=== PATIENT | male | born 1925 | race Caucasian/White ===

== ENCOUNTER 2016-03-16 11:17 | Inpatient (IN) | payer MEDICARE, BC, OTHER ==
[2016-03-16] MEDS ORDERED: LIDOCAINE 1% INJ-PF (10 MG/ML) 30 ML SDV INJ ONE (11:37)
--- NOTE | 2016-03-16 11:42 | ER Document Report ---
ED General - General Chief Complaint: Near Syncope Stated Complaint: FALL;FACIAL INJURY Time seen by provider: 11:40 Mode of Arrival: Medic Information source: Patient Notes: 89-year-old male states that he was walking in the bathroom and thinks he passed out. He says he woke up on the floor was too weak to stand and called 911. He does not recall how long he was on the floor before he called 911 or how long he was unconscious. EMS reports there was blood all over the bathroom where he fell this also material of the thought might of been coffee ground material. The patient reports he was feeling well yesterday evening and has not had any recent illness. He says at the moment he feels sore everywhere but has no specific complaints of pain elsewhere and denies shortness of breath, nausea, vomiting, fever, chills, cough, pain numbness or focal weakness to any extremity. Primary care physician Dr. Trotter Physical Exam: General: Alert, appears well. HEENT: Normocephalic. Dried blood covering most of patient's face. When this is cleaned off the patient has a superficial abrasion to the anterior portion of the nose that does not require suture repair. He has dried blood in both nares with no active bleeding. Pupils equally round reactive to millimeters sclerae anicteric does not well-seen title injection. tympanic members are canals clear. no otorhinorrhea. oropharynx is edentulous moist mucous membranes no lesions a small amount of old blood present in mouth. no bony tenderness palpated the face Neck: Supple. Non-tender. Good range of motion without discomfort no JVD no bony deformities trachea midline Respiratory: No respiratory distress. Clear and equal breath sounds bilaterally. Not tender to palpation well-healed sternal incision noted Cardiovascular: Regular rate and rhythm. GEMMA not displaced Abdominal: Normal Inspection. Soft, non-tender. No distension. Normal Bowel Sounds. No guarding rebound rigidity Back: Non-tender. No deformity or step off. Rectal normal tone and brown stool no blood Extremities: Moves all four extremities. Full range of motion of all joints actively without increase in discomfort. Patient has a 2 cm laceration over the olecranon of the right elbow. No active bleeding present. Patient is multiple bruising of various ages to all extremities. There is a 2 x 2 centimeter skin tear to the inner left forearm proximally. 2+ pulses all extremities no Homans sign no edema Neurological: Cranial nerves III-XII grossly intact bilaterally. Strength 5/5 throughout. Sensation intact to light touch. Normal cognition. AAOx4. Normal speech. Psychological: Normal affect. Normal Mood. Skin: Warm. Dry. Normal color. - Related Data Allergies/Adverse Reactions: No Known Allergies Allergy (Unverified 03/16/16 12:12) Home Medications: Current Home Medications Clopidogrel Bisulfate [Clopidogrel] 1 tab PO DAILY 03/16/16 [History] Ezetimibe/Simvastatin [Vytorin 10-20 mg Tablet] 1 tab PO DAILY 03/16/16 [History ] Hydrochlorothiazide 1 tab PO DAILY 03/16/16 [History] Naproxen Na-Diphenhydramin HCl [Aleve Pm Caplet] 1 tab PO QHS 03/16/16 [History] Tamsulosin HCl 1 cap PO QHS 03/16/16 [History] Past Medical History - Social History Smoking Status: Former Smoker Family History: Other - Patient unsure - Past Medical History Cardiac Medical History: Reports: Hx Coronary Artery Disease Past Surgical History: Reports: Hx Cardiac Surgery - Cardiac bypass surgery patient doesn't know how many Review of Systems - Review of Systems Constitutional: denies: Chills, Fever EENT: denies: Ear pain, Throat pain Cardiovascular: Syncope. denies: Chest pain Respiratory: denies: Cough, Short of breath Gastrointestinal: denies: Abdominal pain, Diarrhea, Blood streaked bowels, Blood in vomit, Black stools, Rectal bleeding Genitourinary: denies: Burning, Dysuria Musculoskeletal: denies: Back pain Skin: denies: Rash Neurological/Psychological: denies: Confusion, Weakness, Numbness Physical Exam - Vital signs Vitals: Resp 27 H 03/16/16 11:40 Course - Re-evaluation Re-evalutation: 03/16/16 15:22 Patient is a have a white count of 30,000 and UTI have concerns patient has urosepsis. Daughters at the bedside and reports that the patient was vomiting prior to passing out and they're unsure if the patient had vomiting of coffee ground material before passing out. The patient's stool is heme-negative still unclear whether he swallowed blood or actually has some GI bleeding but I started patient on IV antibiotics we'll also check blood cultures start antibiotics and have consulted hospitalist service for admission. Elbow lacerations been sewn and CT of head neck and face have not shown any other injuries. - Vital Signs Vital signs: Temp Pulse Resp BP Pulse Ox 95.4 F L 78 15 122/45 L 99 03/16/16 12:11 03/16/16 12:11 03/16/16 14:17 03/16/16 14:17 03/16/16 14:17 - Laboratory Result Diagrams: 03/16/16 11:30 03/16/16 11:30 Laboratory results interpreted by me: 03/16/16 03/16/16 03/16/16 11:30 11:30 11:30 WBC 30.8 H* RBC 4.33 L Hgb 12.1 L Hct 37.6 L RDW 14.1 H Seg Neuts % (Manual) 85 H Lymphocytes % (Manual) 8 L Abs Neuts (Manual) 27.1 H PT 15.6 H Potassium 3.4 L Anion Gap 23 H BUN 77 H Creatinine 1.79 H Est GFR ( Amer) 44 L Est GFR (Non-Af Amer) 36 L Glucose 154 H Calcium 10.5 H AST 16 L Creatine Kinase 51 L Total Protein 6.2 L Urine Ketones Urine Blood Urine Urobilinogen Ur Leukocyte Esterase 03/16/16 14:00 WBC RBC Hgb Hct RDW Seg Neuts % (Manual) Lymphocytes % (Manual) Abs Neuts (Manual) PT Potassium Anion Gap BUN Creatinine Est GFR ( Amer) Est GFR (Non-Af Amer) Glucose Calcium AST Creatine Kinase Total Protein Urine Ketones TRACE H Urine Blood LARGE H Urine Urobilinogen 2.0 H Ur Leukocyte Esterase LARGE H Procedures - Laceration/Wound Repair Right Elbow Wound length (cm): 3 Wound's Depth, Shape: Flap Laceration pre-procedure: Sterile PPE donned, Sterile drapes applied, Shur- Clens applied Anesthetic type: 1% Lidocaine Volume Anesthetic (mLs): 2 Wound explored: Clean Irrigated w/ Saline (mLs): 50 Wound Debrided: Minimal Wound Repaired With: Sutures Suture Size/Type: 4:0 Number of Sutures: 4 Layer Closure?: No Post-procedure wound care: Sterile dressing applied Post-procedure NV exam normal: Yes Complications: No Discharge - Discharge Clinical Impression: Urinary tract infection Qualifiers: Urinary tract infection type: acute cystitis Hematuria presence: without hematuria Qualified Code(s): N30.00 - Acute cystitis without hematuria Syncope Qualifiers: Syncope type: unspecified Qualified Code(s): R55 - Syncope and collapse Condition: Fair Disposition: ADMITTED INPATIENT Admitting Provider: Hospitalist Unit Admitted: [facility]
[2016-03-16 12:12] LABS: PROTHROMBIN TIME 15.6 SEC (11.4-15.4)
[2016-03-16 12:13] LABS: PARTIAL THROMBOPLASTIN TIME 25.6 SEC (23.5-35.8)
[2016-03-16 12:14] LABS: HEMATOCRIT 37.6 % (37.9-51.0); HEMOGLOBIN 12.1 g/dL (13.5-17.0); HGB HCT DIFFERENCE -1.3; MEAN CORPUSCULAR HGB CONC 32.2 g/dL (32.0-36.0); MEAN CORPUSCULAR VOLUME 87 fl (80-97); RED BLOOD COUNT 4.33 10^6/uL (4.35-5.55); RED CELL DISTRIBUTION WIDTH 14.1 % (11.5-14.0)
[2016-03-16 12:23] LABS: WHITE BLOOD COUNT 30.8 10^3/uL (4.0-10.5)
[2016-03-16 12:30] LABS: ALANINE AMINOTRANSFERASE 21 U/L (21-72); ALBUMIN 3.7 g/dL (3.5-5.0); ALKALINE PHOSPHATASE 61 U/L (38-126); ASPARTATE AMINO TRANSFERASE 16 U/L (17-59); BILIRUBIN,TOTAL 0.8 mg/dL (0.2-1.3); BLOOD UREA NITROGEN 77 mg/dL (7-20); CALCIUM 10.5 mg/dL (8.4-10.2); CARBON DIOXIDE 23 mmol/L (22-30); CHLORIDE 98 mmol/L (98-107); CREATINE KINASE 51 U/L (55-170); CREATININE RESULT 1.79 mg/dL (0.52-1.25); GLUCOSE 154 mg/dL (75-110); LIPASE 25.4 U/L (23-300); MAGNESIUM 1.9 mg/dL (1.6-2.3); POTASSIUM 3.4 mmol/L (3.6-5.0); TOTAL PROTEIN 6.2 g/dL (6.3-8.2)
[2016-03-16 12:33] LABS: ANION GAP 23 (5-19)
[2016-03-16 12:36] LABS: CREATINE KINASE MB 1.6 ng/mL (<4.55)
[2016-03-16 12:40] LABS: TROPONIN I 0.015 ng/mL
[2016-03-16 12:56] LABS: BAND NEUTROPHILS % (MANUAL) 3 % (3-5); BASOPHILS % (MANUAL) 0 % (0-2); BURR CELLS 1+; EOSINOPHILS % (MANUAL) 0 % (0-6); LYMPHOCYTES % (MANUAL) 8 % (13-45); OVALOCYTES SLIGHT; PLATELET CLUMPS PRESENT; POIKILOCYTOSIS 1+; TOTAL CELLS COUNTED 100; TOXIC GRANULATION SLIGHT
[2016-03-16 12:57] LABS: POLYCHROMASIA SLIGHT
[2016-03-16 14:42] LABS: APPEARANCE,URINE CLOUDY; BILIRUBIN,URINE NEGATIVE (NEGATIVE); GLUCOSE, URINE NEGATIVE (NEGATIVE); KETONES,URINE TRACE mg/dL (NEGATIVE); LEUKOCYTE ESTERASE,URINE LARGE (NEGATIVE); NITRITE,URINE NEGATIVE (NEGATIVE); PROTEIN,URINE NEGATIVE (NEGATIVE); URINE SPECIFIC GRAVITY 1.018
[2016-03-16] MEDS ORDERED: PANTOPRAZOLE SODIUM 40 MG VIAL IV ONE (14:50)
[2016-03-16] MEDS ORDERED: CEFTRIAXONE 1 GM/D5W RTU 50 ML IV ONE (15:16)
[2016-03-16] MEDS ORDERED: NORMAL SALINE 1000 ML 1,000 ML IV ONE (15:17)
[2016-03-16] MEDS: PANTOPRAZOLE SODIUM 40 MG VIAL IV PRN (15:31)
[2016-03-16] MEDS ORDERED: IPRATROPIUM/ALBUTEROL 0.5-2.5 MG/3 ML AMPUL NEB PRN (15:54)
[2016-03-16] MEDS ORDERED: ACETAMINOPHEN 325 MG TABLET PO PRN (15:54)
[2016-03-16] MEDS ORDERED: ONDANSETRON HCL INJ/PF 4 MG/2 ML SDV IV PRN (15:54)
[2016-03-16] MEDS ORDERED: PHARMACY COMMUNICATION ORDER MC NR (16:15)
[2016-03-16] MEDS: MORPHINE SULFATE 10 MG/ML INJ IV PRN ×2 (16:29→20:10)
[2016-03-16] MEDS ORDERED: NORMAL SALINE 1000 ML 2,000 ML IV ONE (16:30)
[2016-03-16] MEDS: PIPERACILLIN SODIUM/TAZOBACTAM 2.25 GM in NORMAL SALINE 50 ML IV SCH (16:59)
[2016-03-16] MEDS: NORMAL SALINE 1000 ML 1,000 ML IV PRN (17:00)
[2016-03-16 17:10] LABS: PARTIAL THROMBOPLASTIN TIME 28.8 SEC (23.5-35.8); PROTHROMBIN TIME 16.2 SEC (11.4-15.4)
--- NOTE | 2016-03-16 17:15 | PDOC H&P ---
History of Present Illness Admission Date/PCP: 03/16/16 15:41 NEFTALI TIPTON MD History of Present Illness: KEMAL JACKSON JR is a 89 year old male who presents to the emergency department after syncopal episode. Patient reports that he was trying to get to the bathroom as he began vomiting this morning and subsequently syncopized. Patient had a complete loss of consciousness and facial trauma. Patient without the floor and was too weak to stand and called 911. Per ED reports, EMS noted blood all over the bathroom and possibly coffee-ground emesis. Patient does report that starting this morning he began having black vomit. He reports normally that he is constipated and he did take a Dulcolax this morning and has subsequently had a stool that was looser in emergency department. Patient reports that he is on Plavix as he has a history of a heart valve replacement. He also reports that he's been taking Aleve nightly for the last several weeks due to insomnia. He does complain of some lower back pain and also some left lower extremity "problems with his toe". Patient is referred to the hospitalist service for sepsis secondary to urinary tract infection, syncope , upper GI bleed. 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 Hx Recreational Drug Use: No Hx Prescription Drug Abuse: No - Advance Directive Resuscitation Status: Full Code Surrogate healthcare decision maker:: Keri Fitzpatrick, niece Family History Family History: CAD Parental Family History Reviewed: Yes Children Family History Reviewed: NA Sibling(s) Family History Reviewed.: Yes Medication/Allergy Home Medications: Clopidogrel Bisulfate [Clopidogrel] 1 tab PO DAILY 03/16/16 Ezetimibe/Simvastatin [Vytorin 10-20 mg Tablet] 1 tab PO DAILY 03/16/16 Hydrochlorothiazide 1 tab PO DAILY 03/16/16 Naproxen Na-Diphenhydramin HCl [Aleve Pm Caplet] 1 tab PO QHS 03/16/16 Tamsulosin HCl 1 cap PO QHS 03/16/16 Allergies/Adverse Reactions: No Known Allergies Allergy (Unverified 03/16/16 12:12) Review of Systems Constitutional: PRESENT: fatigue, weakness. ABSENT: chills, fever(s), headache( s), weight gain, weight loss Eyes: ABSENT: visual disturbances Ears: ABSENT: hearing changes Cardiovascular: ABSENT: chest pain, dyspnea on exertion, edema, orthropnea, palpitations Respiratory: ABSENT: cough, dyspnea, hemoptysis, sputum Gastrointestinal: PRESENT: coffee ground emesis, constipation, diarrhea. ABSENT : abdominal pain, dysphagia, heartburn, hematemesis, hematochezia, melena, nausea, vomiting Genitourinary: PRESENT: difficulty urinating, other - Frequent urination. ABSENT: dysuria, hematuria Musculoskeletal: PRESENT: back pain. ABSENT: joint swelling Integumentary: PRESENT: wounds - Per history of present illness. ABSENT: rash Neurological: PRESENT: syncope. ABSENT: abnormal gait, abnormal speech, confusion, dizziness, focal weakness Psychiatric: ABSENT: anxiety, depression, homidical ideation, suicidal ideation Endocrine: ABSENT: cold intolerance, heat intolerance, polydipsia, polyuria Hematologic/Lymphatic: PRESENT: easy bleeding, easy bruising, other - Easy bleeding and bruising per patient due to Plavix Physical Exam Vital Signs: Temp Pulse Resp BP Pulse Ox 95.4 F L 78 17 129/47 H 94 03/16/16 12:11 03/16/16 12:11 03/16/16 15:01 03/16/16 15:01 03/16/16 15:01 General appearance: PRESENT: mild distress, well-developed, well-nourished Head exam: PRESENT: normocephalic. ABSENT: atraumatic - Patient with laceration across to his bridge of his nose, mild septal deviation, bilateral eye ecchymoses Eye exam: PRESENT: conjunctiva pink, EOMI, periorbital swelling. ABSENT: conjunctival injection, PERRLA - Left eye not round, scleral icterus Ear exam: PRESENT: normal external ear exam Mouth exam: PRESENT: dry mucosa, neck supple, tongue midline Throat exam: ABSENT: post pharyngeal erythema Neck exam: PRESENT: full ROM. ABSENT: carotid bruit, JVD, lymphadenopathy, thyromegaly, tracheal deviation Respiratory exam: PRESENT: clear to auscultation [place], unlabored. ABSENT: crackles, prolonged expiratory phas, rales, rhonchi, tachypnea, wheezes Cardiovascular exam: PRESENT: clicks, RRR, +S1, +S2, systolic murmur. ABSENT: diastolic murmur, gallop, rubs Pulses: ABSENT: normal dorsalis pedis pul - Right dorsalis pedis pulse normal, left dorsalis pedis pulse faint, absent anterior tibialis Vascular exam: PRESENT: pallor. ABSENT: normal capillary refill - Greater than 10 seconds GI/Abdominal exam: PRESENT: normal bowel sounds, soft. ABSENT: distended, firm , guarding, hernia, mass, Kauffman's sign, organolmegaly, rebound, rigid, tenderness Rectal exam: PRESENT: deferred Extremities exam: PRESENT: clubbing, full ROM. ABSENT: calf tenderness, pedal edema Musculoskeletal exam: PRESENT: other - Strength Neurological exam: PRESENT: alert, awake, oriented to person, oriented to place , oriented to time, oriented to situation, CN II-XII grossly intact. ABSENT: motor sensory deficit Psychiatric exam: PRESENT: appropriate affect, normal mood. ABSENT: homicidal ideation, suicidal ideation Skin exam: PRESENT: dry, intact, warm. ABSENT: cyanosis, rash Results Impressions: Cervical Spine CT 03/16/16 11:34 IMPRESSION: CHRONIC DEGENERATIVE CHANGES. NO ACUTE FINDINGS. Head CT 03/16/16 11:34 IMPRESSION: 1. No acute intracranial abnormality. No skull fracture. 2. Age-related brain matter volume involution with compensatory ventriculomegaly and CSF space dilatation. Chronic microvascular a disease changes in the supratentorial white matter. Facial Bones CT 03/16/16 11:42 IMPRESSION: No acute facial bone fractures. Chest X-Ray 03/16/16 14:48 IMPRESSION: NO ACUTE RADIOGRAPHIC FINDING IN THE CHEST. Assessment & Plan - Diagnosis (1) Syncope Qualifiers: Syncope type: unspecified Qualified Code(s): R55 - Syncope and collapse Is this a current diagnosis for this admission?: YesPlan: Likely secondary to underlying sepsis and GI hemorrhage. Will check TSH. Patient is currently not hypoxic, but have considered PE as part of this differential. However, in light of patient's active bleeding we will avoid anticoagulation at this time. (2) Sepsis Qualifiers: Sepsis type: sepsis due to unspecified organism Qualified Code(s): A41.9 - Sepsis, unspecified organism Is this a current diagnosis for this admission?: YesPlan: Patient has apparent UTI. Feel the patient's exaggerated leukocytosis is likely in part secondary to the demargination from his acute syncope. Begin patient on renally adjusted Zosyn. (3) UTI (urinary tract infection) Qualifiers: Urinary tract infection type: acute cystitis Hematuria presence: without hematuria Qualified Code(s): N30.00 - Acute cystitis without hematuria Is this a current diagnosis for this admission?: YesPlan: Initiated patient on renally adjusted Zosyn. Send for culture. Will obtain a CT of the abdomen and pelvis as he is having some lower back pain which is likely secondary to syncopal episode, but concern for possible obstructing stone. Patient is a slightly poor historian currently. (4) GI hemorrhage Qualifiers: GI bleed type/associated pathology: unspecified gastrointestinal hemorrhage type Qualified Code(s): K92.2 - Gastrointestinal hemorrhage, unspecified Is this a current diagnosis for this admission?: YesPlan: Patient with reported dark emesis and recent increase in NSAID usage. Have consulted Dr. Ho of GI and initiated patient on Protonix bolus and drip. Place patient on Carafate and nothing by mouth after midnight. Patient on clear liquids. (5) Diminished pulses in lower extremity Is this a current diagnosis for this admission?: YesPlan: Patient is diminished pulses in his left lower extremity. Will obtain arterial Doppler. Have concern the patient has had previous infrarenal AAA in the past. (6) Hyperlipidemia Is this a current diagnosis for this admission?: YesPlan: Will hold patient's statin and check a CK prior to reinitiating. (7) H/O heart valve replacement with bioprosthetic valve Is this a current diagnosis for this admission?: YesPlan: Patient is uncertain sure which valve was replaced. He does see Dr. Santana in [place]. Will attempt to obtain outside records. (8) Facial trauma Qualifiers: Encounter type: initial encounter Qualified Code(s): S09.93XA - Unspecified injury of face, initial encounter Is this a current diagnosis for this admission?: YesPlan: Patient did not require any sutures. Continue to monitor for worsening particularly any airway swelling or septal swelling in light of his Plavix use (9) Acute kidney injury Is this a current diagnosis for this admission?: YesPlan: Patient likely has an acute kidney injury superimposed on chronic renal disease. He does have a history of an infrarenal abdominal aortic aneurysm. Will obtain an ultrasound of his kidneys and of the aorta to evaluate this. BUN to creatinine ratio was performed on 11 27. Will begin patient on 3 L of bolus and then maintenance fluids. - Time Time Spent: Greater than 70 Minutes Medications reviewed and adjusted accordingly: Yes Anticipated discharge: Acute Rehab - Inpatient Certification Based on my medical assessment, after consideration of the patient's comorbidities, presenting symptoms, or acuity I expect that the services needed warrant INPATIENT care.: Yes I certify that my determination is in accordance with my understanding of Medicare's requirements for reasonable and necessary INPATIENT services [42 CFR 412.3e].: Yes Medical Necessity: Failure to Improve With Outpatient Therapy, Significant Comorbidiites Make Outpatient Treatment Too Risky, Need Close Monitoring Due to Risk of Patient Decompensation, Need For IV Fluids, Need For Continuous Telemetry Monitoring, Need for Neurological Checks, Need for Pain Control, Need for IV Antibiotics, Risk of Complication if Not Cared For in Hospital, Risk of Diagnosis Which Will Require Inpatient Eval/Care/Monitoring Post Hospital Care: D/C Physician President Documentation
--- NOTE | 2016-03-16 18:25 | EKG REPORT ---
SEVERITY:- ABNORMAL ECG - SINUS RHYTHM MULTIPLE VENTRICULAR PREMATURE COMPLEXES CONSIDER INFERIOR INFARCT BORDERLINE PROLONGED QT INTERVAL : Confirmed by: Jose De Jesus Negron MD 16-Mar-2016 18:24:49
[2016-03-16] MEDS: SUCRALFATE SUSP 1 GM/10 ML UDCUP PO SCH (20:10)
--- NOTE | 2016-03-16 20:38 | PDOC CONSULTATION ---
Consultation Consult Date: 03/16/16 Attending physician:: ANUSHKA TANG Consult reason:: Coffee ground emesis, acute anemia, history of NSAID use with concurent anticoagulation. syncopal episode. facial trauma History of Present Illness Admission Date/PCP: 03/16/16 15:54 NEFTALI TIPTON MD History of Present Illness: I am asked to see this patient by Dr Sanchez. Patient does take chronic anticoagulation and had a syncopal episode earlier today. patient was found in pool of blood. Apparently patient was found down and it is unclear if patient had emesis of blood or whether it was due to facial trauma incurred as a result of the fall. Patient was trying to make his way to bathroom is on chronic anticoagulation and has a recent history of NSAID use does have underlying history of GERD I am asked to provide endoscopic evaluation to determine if this is an upper GI bleed I had spoken with Dr Sanchez, patient to be started on a PPI NPO after midnight for EGD in the am his anticoagulation should also be stopped at this time. denies any underlying melena no nausea or vomiting no dysphagia or odynophagia Past Medical History Cardiac Medical History: Reports: Coronary Artery Disease, Hyperlipidema Past Surgical History Past Surgical History: Reports: Valve Replacement Social History Smoking Status: Former Smoker - Quit 20 years ago Frequency of Alcohol Use: None Hx Recreational Drug Use: No Hx Prescription Drug Abuse: No - Advance Directive Resuscitation Status: Full Code Family History Family History: CAD Parental Family History Reviewed: Yes Children Family History Reviewed: Unknown Sibling(s) Family History Reviewed.: Unknown Medication/Allergy Home Medications: Clopidogrel Bisulfate [Clopidogrel] 1 tab PO DAILY 03/16/16 Ezetimibe/Simvastatin [Vytorin 10-20 mg Tablet] 1 tab PO DAILY 03/16/16 Hydrochlorothiazide 1 tab PO DAILY 03/16/16 Naproxen Na-Diphenhydramin HCl [Aleve Pm Caplet] 1 tab PO QHS 03/16/16 Tamsulosin HCl 1 cap PO QHS 03/16/16 Allergies/Adverse Reactions: No Known Allergies Allergy (Unverified 03/16/16 12:12) Review of Systems Constitutional: PRESENT: weakness. ABSENT: fever(s), headache(s), night sweats Eyes: ABSENT: visual disturbances Ears: ABSENT: hearing changes Nose, Mouth, and Throat: ABSENT: mouth pain, vertigo Cardiovascular: ABSENT: chest pain, orthropnea, palpitations Respiratory: ABSENT: dyspnea, hemoptysis Gastrointestinal: PRESENT: coffee ground emesis. ABSENT: diarrhea, dysphagia, hematemesis, hematochezia Genitourinary: ABSENT: dysuria, hematuria Musculoskeletal: ABSENT: joint swelling Integumentary: ABSENT: pruritus Neurological: PRESENT: syncope. ABSENT: frequent falls, paresthesias, tremor(s) , vertigo Psychiatric: ABSENT: hallucinations Endocrine: ABSENT: heat intolerance, polydipsia, polyphagia, polyuria Hematologic/Lymphatic: ABSENT: easy bruising Allergic/Immunologic: ABSENT: seasonal rhinorrhea Physical Exam Vital Signs: Temp Pulse Resp BP Pulse Ox 98.6 F 87 20 105/46 L 90 L 03/16/16 17:06 03/16/16 20:03 03/16/16 20:03 03/16/16 18:01 03/16/16 20:03 General appearance: PRESENT: no acute distress, cooperative Head exam: PRESENT: atraumatic, normocephalic Eye exam: PRESENT: EOMI, PERRLA. ABSENT: nystagmus, periorbital swelling, scleral icterus Mouth exam: PRESENT: moist, tongue midline Neck exam: ABSENT: carotid bruit, JVD, lymphadenopathy, meningismus, tenderness , thyromegaly, tracheal deviation Respiratory exam: PRESENT: clear to auscultation [place], symmetrical, unlabored. ABSENT: rhonchi, stridor Cardiovascular exam: PRESENT: RRR, +S1, +S2 Pulses: PRESENT: normal carotid pulses GI/Abdominal exam: PRESENT: normal bowel sounds, soft. ABSENT: distended, guarding, Kauffman's sign, rebound Gentrourinary exam: ABSENT: lesions Extremities exam: ABSENT: joint swelling Neurological exam: PRESENT: alert, awake, oriented to person, CN II-XII grossly intact. ABSENT: altered Psychiatric exam: PRESENT: appropriate affect Skin exam: PRESENT: abrasion, normal color. ABSENT: jaundice, mottled, pallor, petechiae, urticaria, vesicles Results Laboratory Results: 03/16/16 16:55 Retic Count (auto) 1.79 Absolute Retic 0.067 03/16/16 16:55 Troponin I 0.021 Impressions: Limited or Localized CT 03/16/16 00:00 IMPRESSION: Infrarenal abdominal aortic aneurysm as noted above measuring 4.1 x 5.3 cm in diameters. Small gallstones. Other findings as noted above Renal Ultrasound 03/16/16 00:00 IMPRESSION: There is hyperechoic irregular thickening of the right bladder wall which shows internal color Doppler flow, this area measures 2.9 x 2.3 x 0.8 cm, concerning for infiltrating lesion. No hydronephrosis. Cervical Spine CT 03/16/16 11:34 IMPRESSION: CHRONIC DEGENERATIVE CHANGES. NO ACUTE FINDINGS. Head CT 03/16/16 11:34 IMPRESSION: 1. No acute intracranial abnormality. No skull fracture. 2. Age-related brain matter volume involution with compensatory ventriculomegaly and CSF space dilatation. Chronic microvascular a disease changes in the supratentorial white matter. Facial Bones CT 03/16/16 11:42 IMPRESSION: No acute facial bone fractures. Chest X-Ray 03/16/16 14:48 IMPRESSION: NO ACUTE RADIOGRAPHIC FINDING IN THE CHEST. Assessment & Plan - Diagnosis (1) GI hemorrhage Qualifiers: GI bleed type/associated pathology: unspecified gastrointestinal hemorrhage type Qualified Code(s): K92.2 - Gastrointestinal hemorrhage, unspecified Is this a current diagnosis for this admission?: YesPlan: ? possible coffee ground emesis and will need EGD for evaluation could be peptic ulcer disease due to chronic NSAID use made worse by anticoagulation will need to discontinue anticoagulation start PPI follow up on H/H? transfuse as necessary NPO post midnight Risks, benefits and alternatives are discussed with the patient in detail further recommendations to follow - Time Time Spent: 50 to 70 Minutes
[2016-03-16 22:13] LABS: HEMATOCRIT 28.4 % (37.9-51.0); HGB HCT DIFFERENCE -0.8; MEAN CORPUSCULAR HEMOGLOBIN 27.7 pg (27.0-33.4); MEAN CORPUSCULAR HGB CONC 32.5 g/dL (32.0-36.0); MEAN CORPUSCULAR VOLUME 85 fl (80-97); RED BLOOD COUNT 3.33 10^6/uL (4.35-5.55); RED CELL DISTRIBUTION WIDTH 13.6 % (11.5-14.0); WHITE BLOOD COUNT 21.8 10^3/uL (4.0-10.5)
[2016-03-16 22:21] LABS: HEMOGLOBIN 9.2 g/dL (13.5-17.0)
[2016-03-16] MEDS: TAMSULOSIN HCL 0.4 MG CAP.SR.24H PO SCH (22:59)
[2016-03-17] MEDS ORDERED: INFLUENZA ADLT QUAD (36MOS+) 2016-17 VAC 0.5 ML SYR IM PRN (00:37)
[2016-03-17] MEDS: PIPERACILLIN SODIUM/TAZOBACTAM 2.25 GM in NORMAL SALINE 50 ML IV SCH ×4 (00:47→17:22)
[2016-03-17] MEDS: SUCRALFATE SUSP 1 GM/10 ML UDCUP PO SCH ×5 (00:47→23:38)
[2016-03-17] MEDS: PANTOPRAZOLE SODIUM 40 MG VIAL IV PRN (00:48)
[2016-03-17 02:38] LABS: HEMATOCRIT 27.7 % (37.9-51.0); HEMOGLOBIN 8.5 g/dL (13.5-17.0); HGB HCT DIFFERENCE -2.2; MEAN CORPUSCULAR HEMOGLOBIN 27.2 pg (27.0-33.4); MEAN CORPUSCULAR HGB CONC 30.9 g/dL (32.0-36.0); MEAN CORPUSCULAR VOLUME 88 fl (80-97); RED BLOOD COUNT 3.14 10^6/uL (4.35-5.55); RED CELL DISTRIBUTION WIDTH 13.8 % (11.5-14.0); WHITE BLOOD COUNT 15.5 10^3/uL (4.0-10.5)
[2016-03-17] MEDS: NORMAL SALINE 1000 ML 1,000 ML IV PRN ×2 (06:23→23:36)
[2016-03-17] MEDS ORDERED: NORMAL SALINE 1000 ML 1,000 ML IV ONE (07:30)
--- NOTE | 2016-03-17 08:26 | XCELERA REPORT ---
[address] [address] Lower Extremity Arterial Evaluation Name: KEMAL JACKSON JR Age: 89 yrs Gender: Male : 1925 Patient Status: Inpatient Patient Location: \S\70\S\A Study Date: 03/16/2016 05:24 PM Procedure: A color flow and duplex scan of the lower extremity arteries was performed on the left with velocity and waveform anaylsis. Reason For Study: cool, diminished pulse LLE Ordering Physician: MYKEL AMAYA Performed By: Caridad Frank Measurements and Calculations Right Left COORDINATE MEASURING MACHINE OPERATOR PSV 129.2 cm/sec Prox SFA PSV -78.1 cm/sec Mid SFA PSV 176.0 cm/sec Dist SFA PSV 153.0 cm/sec Dist Pop A PSV -22.7 cm/sec Dist ROSMERY PSV 28.9 cm/sec Prox CLOTH LAMINATING SUPERVISOR PSV 36.0 cm/sec Dist CLOTH LAMINATING SUPERVISOR PSV 26.1 cm/sec John Pedis PSV 18.4 115.5 cm/sec Right Side Arterial Evaluation Monophasic waveform in the Dorsalis Pedis. Left Side Arterial Evaluation Abnormal velocity, monophasic phasic waveform and reduced flow are present, from the Common Femoral artery to the infrageniculate vessels. Progressively worse. The ankle-brachial index was not done. 50-99 % stenosis is noted at the inflow, possible sequential disease.. Critical Findings Discussed with Dr Quezada at about 2100. Interpretation Summary Severe hemodynamically significant lesions in the left lower extremity only, on duplex imaging, at rest. : MYKEL AMAYA > Darryn Pabon
[2016-03-17 08:35] LABS: HEMATOCRIT 25.5 % (37.9-51.0); HEMOGLOBIN 8.2 g/dL (13.5-17.0); HGB HCT DIFFERENCE -0.9; MEAN CORPUSCULAR HEMOGLOBIN 28.1 pg (27.0-33.4); MEAN CORPUSCULAR HGB CONC 32.1 g/dL (32.0-36.0); MEAN CORPUSCULAR VOLUME 88 fl (80-97); RED BLOOD COUNT 2.91 10^6/uL (4.35-5.55); WHITE BLOOD COUNT 12.1 10^3/uL (4.0-10.5)
[2016-03-17 09:00] LABS: ANION GAP 8 (5-19); BLOOD UREA NITROGEN 66 mg/dL (7-20); CALCIUM 8.1 mg/dL (8.4-10.2); CARBON DIOXIDE 25 mmol/L (22-30); CHLORIDE 110 mmol/L (98-107); CREATININE RESULT 1.64 mg/dL (0.52-1.25); GLUCOSE 100 mg/dL (75-110); POTASSIUM 3.6 mmol/L (3.6-5.0)
[2016-03-17] MEDS: CYANOCOBALAMIN (VITAMIN B-12) INJ 1000 MCG/1 ML VIAL IM SCH (09:38)
[2016-03-17 10:52] LABS: PATH REVIEW PATHOLOGIST REVIEWED
[2016-03-17] MEDS ORDERED: PROMETHAZINE HCL INJ 25 MG/1 ML VIAL ONE (12:15)
[2016-03-17] MEDS ORDERED: ONDANSETRON HCL INJ/PF 4 MG/2 ML SDV ONE (12:15)
[2016-03-17] MEDS ORDERED: DIPHENHYDRAMINE HCL 50 MG/ML VIAL ONE (12:15)
[2016-03-17] MEDS ORDERED: NALOXONE HCL INJ/PF 0.4 MG/1 ML SDV ONE (12:15)
[2016-03-17] MEDS ORDERED: FENTANYL CITRATE INJ/PF 100 MCG/2 ML AMPUL ONE (12:16)
[2016-03-17] MEDS ORDERED: MIDAZOLAM 2 MG/2 ML INJ ONE ×2 (12:16)
[2016-03-17] MEDS ORDERED: FLUMAZENIL INJ 0.5 MG/5 ML VIAL IV ONE (12:16)
[2016-03-17] MEDS ORDERED: GLUCAGON,HUMAN RECOMB 1 MG INJ ONE (12:17)
[2016-03-17] MEDS ORDERED: EPINEPHRINE INJ 1 MG/10 ML DISP.SYRIN ONE (12:17)
[2016-03-17] MEDS ORDERED: NORMAL SALINE 250 ML IV PRN ×2 (13:16)
[2016-03-17] MEDS ORDERED: FUROSEMIDE INJ/PF 20 MG/2 ML SDV IV PRN (13:16)
--- NOTE | 2016-03-17 13:36 | PDOC PROGRESS REPORT ---
Subjective Progress Note for:: 03/17/16 Subjective:: Patient reports he had a large dark stool overnight. Patient denies chest pain, shortness of breath, abdominal pain, nausea, vomiting , fevers, chills, diarrhea, constipation, headache, new onset weakness. Physical Exam Vital Signs: Temp Pulse Resp BP Pulse Ox 97.9 F 69 20 90/40 L 95 03/17/16 04:09 03/17/16 04:09 03/17/16 04:09 03/17/16 04:09 03/17/16 04:09 Intake & Output 03/16/16 03/17/16 03/18/16 06:59 06:59 06:59 Intake Total 3701 Output Total 550 Balance 3151 Weight 68.4 kg Exam: General: Awake alert and orientedx3, no acute respiratory distress HEENT: Facial ecchymosis, NC, PERRL, EOMI, oropharynx is moist, pale, no scleral icterus, no conjunctival injection Neck: No JVD, trachea midline Chest: Clear to auscultation bilaterally, no wheezes rhonchi or rales CV: Regular rate and rhythm, normal S1 and S2, no murmur, rub, or gallop Abdomen: Soft, nontender to palpation, nondistended, hyperactive bowel sounds; no rebound, rigidity, or guarding Extremities: No cyanosis, clubbing or edema Neuro: Cranial nerves II through XII are grossly intact without focal deficits; awake alert and oriented x3 Psych: Normal mood and affect Skin: Ecchymosis on right elbow with stitches clean and well approximated, ecchymosis right knee, facial ecchymosis across bridge of nose, Results Laboratory Results: 03/17/16 02:23 03/16/16 03/16/16 03/16/16 16:55 20:04 23:10 WBC 21.8 H RBC 3.33 L Hgb 9.2 L D Hct 28.4 L MCV 85 MCH 27.7 MCHC 32.5 RDW 13.6 Plt Count 194 Retic Count (auto) 1.79 Absolute Retic 0.067 Lactic Acid 3.2 H 03/17/16 02:23 WBC 15.5 H RBC 3.14 L Hgb 8.5 L Hct 27.7 L MCV 88 MCH 27.2 MCHC 30.9 L RDW 13.8 Plt Count 176 Retic Count (auto) Absolute Retic Lactic Acid 03/16/16 03/16/16 03/17/16 16:55 20:04 02:23 Troponin I 0.021 0.026 0.028 Impressions: Limited or Localized CT 03/16/16 00:00 IMPRESSION: Infrarenal abdominal aortic aneurysm as noted above measuring 4.1 x 5.3 cm in diameters. Small gallstones. Other findings as noted above Renal Ultrasound 03/16/16 00:00 IMPRESSION: There is hyperechoic irregular thickening of the right bladder wall which shows internal color Doppler flow, this area measures 2.9 x 2.3 x 0.8 cm, concerning for infiltrating lesion. No hydronephrosis. Cervical Spine CT 03/16/16 11:34 IMPRESSION: CHRONIC DEGENERATIVE CHANGES. NO ACUTE FINDINGS. Head CT 03/16/16 11:34 IMPRESSION: 1. No acute intracranial abnormality. No skull fracture. 2. Age-related brain matter volume involution with compensatory ventriculomegaly and CSF space dilatation. Chronic microvascular a disease changes in the supratentorial white matter. Facial Bones CT 03/16/16 11:42 IMPRESSION: No acute facial bone fractures. Chest X-Ray 03/16/16 14:48 IMPRESSION: NO ACUTE RADIOGRAPHIC FINDING IN THE CHEST. Assessment & Plan - Diagnosis (1) Syncope Qualifiers: Syncope type: unspecified Qualified Code(s): R55 - Syncope and collapse Is this a current diagnosis for this admission?: YesPlan: Likely secondary to underlying sepsis and GI hemorrhage. Patient's TSH is slightly elevated. Will check a free T4 and free T3. Patient is currently not hypoxic, but have considered PE as part of this differential. However, in light of patient's active bleeding we will avoid anticoagulation at this time. Patient is been instructed not to get out of bed without assistance. (2) Sepsis Qualifiers: Sepsis type: sepsis due to unspecified organism Qualified Code(s): A41.9 - Sepsis, unspecified organism Is this a current diagnosis for this admission?: YesPlan: Patient currently growing 2 different gram-negative rods, on Zosyn day #2. Patient has apparent UTI. Feel the patient's exaggerated leukocytosis is likely in part secondary to the demargination from his acute syncope. (3) UTI (urinary tract infection) Qualifiers: Urinary tract infection type: acute cystitis Hematuria presence: without hematuria Qualified Code(s): N30.00 - Acute cystitis without hematuria Is this a current diagnosis for this admission?: YesPlan: On syn day #2. Currently growing 2 different gram-negative rods. (4) GI hemorrhage Qualifiers: GI bleed type/associated pathology: unspecified gastrointestinal hemorrhage type Qualified Code(s): K92.2 - Gastrointestinal hemorrhage, unspecified Is this a current diagnosis for this admission?: YesPlan: Patient with reported dark emesis and recent increase in NSAID usage. Patient also reports melena. Have consulted Dr. Ho of GI and initiated patient on Protonix drip and Carafate. Patient reports melena overnight. Hemoglobin significantly trending down. Will give 2 units packed red cells. Pending upper endoscopy today. (5) Hyperlipidemia Is this a current diagnosis for this admission?: Yes (6) H/O heart valve replacement with bioprosthetic valve Is this a current diagnosis for this admission?: Yes (7) Facial trauma Qualifiers: Encounter type: initial encounter Qualified Code(s): S09.93XA - Unspecified injury of face, initial encounter Is this a current diagnosis for this admission?: Yes (8) Acute kidney injury Is this a current diagnosis for this admission?: YesPlan: Patient likely has an acute kidney injury superimposed on chronic renal disease. Creatinine slightly improved. Patient likely has baseline renal dysfunction. (9) Peripheral artery disease Is this a current diagnosis for this admission?: YesPlan: Patient has significant left lower extremity disease. Patient is also found to have a significant infrarenal AAA. (10) Mass of urinary bladder determined by ultrasound Is this a current diagnosis for this admission?: YesPlan: While undergoing ultrasound for kidneys and incidental bladder mass was found. I discussed this with the patient. - Time Time Spent with patient: 35 or more minutes Medications reviewed and adjusted accordingly: Yes
--- NOTE | 2016-03-17 14:04 | Operative Report ---
Operative Report DATE OF SURGERY: 03/17/16 Operative Report: The risks benefits and alternatives of the procedure explained to the patient in detail and informed consent is obtained that GIF Olympus video scope was inserted into the patient's mouth and hypopharynx the esophagus is identified intubated and insufflated the scope was then advanced through the esophagus stomach and duodenum retroflexion maneuver is done the esophagus stomach and first and second portions of the duodenum examined PREOPERATIVE DIAGNOSIS: Melena. Acute GI bleeding POSTOPERATIVE DIAGNOSIS: Gastric colored obstruction status post dilatation from 12 m to 13.5 mm for 30 seconds each. Gastric ulcers 2. Gastritis status post biopsy rule out Helicobacter pylori OPERATION: EGD with dilatation. EGD with biopsy SURGEON: ANUSHKA TANG ANESTHESIA: Moderate Sedation - 2 mg Versed TISSUE REMOVED OR ALTERED: Gastric specimens obtained COMPLICATIONS: None. ESTIMATED BLOOD LOSS: none. INTRAOPERATIVE FINDINGS: No acute bleeding noted. Ulcers are not actively bleeding. Dilatation of gastric outlet had to be done. Retroflexion does show a hiatal hernia. Second portion of the duodenum is normal. No esophageal varices PROCEDURE: Patient tolerated the procedure well. No immediate postprocedure complications are noted. Patient sent back to his room in good condition. He can be started on clears. Follow H&H Transfuse as necessary Proton pump inhibitor therapy If biopsies are positive for Helicobacter pylori will need to be treated Follow-up EGD in 6-8 weeks to document healing
[2016-03-17 14:52] LABS: HEMATOCRIT 25.1 % (37.9-51.0); HEMOGLOBIN 8.1 g/dL (13.5-17.0); HGB HCT DIFFERENCE -0.8; MEAN CORPUSCULAR HEMOGLOBIN 28.1 pg (27.0-33.4); MEAN CORPUSCULAR HGB CONC 32.1 g/dL (32.0-36.0); MEAN CORPUSCULAR VOLUME 88 fl (80-97); RED BLOOD COUNT 2.87 10^6/uL (4.35-5.55); RED CELL DISTRIBUTION WIDTH 14.2 % (11.5-14.0); WHITE BLOOD COUNT 9.5 10^3/uL (4.0-10.5)
[2016-03-17 15:32] LABS: FREE T3 2.48 pg/mL (2.77-5.27)
[2016-03-17] MEDS: TAMSULOSIN HCL 0.4 MG CAP.SR.24H PO SCH (21:49)
[2016-03-18] MEDS: PIPERACILLIN SODIUM/TAZOBACTAM 2.25 GM in NORMAL SALINE 50 ML IV SCH ×4 (00:51→17:02)
[2016-03-18] MEDS: SUCRALFATE SUSP 1 GM/10 ML UDCUP PO SCH ×4 (05:35→23:01)
[2016-03-18] MEDS: NORMAL SALINE 1000 ML 1,000 ML IV PRN (05:36)
[2016-03-18] MEDS: CYANOCOBALAMIN (VITAMIN B-12) INJ 1000 MCG/1 ML VIAL IM SCH (09:28)
--- NOTE | 2016-03-18 09:46 | PDOC PROGRESS REPORT ---
Subjective Progress Note for:: 03/18/16 Subjective:: Patient underwent EGD yesterday for melena. He tolerated the procedure well with minimal medication. No active bleeding was noted. 2 distinct clean base ulcers at the gastric outlet causing gastric outlet obstruction he did require dilatation. He tolerated the procedure well he sent back to his room he had a further blood transfusion. His hemoglobin has been stable. He should be off anticoagulation. He needs to be started on a PPI. Biopsies are still pending. He will need to be treated if positive for Helicobacter pylori. Physical Exam Vital Signs: Temp Pulse Resp BP Pulse Ox 98.0 F 59 L 20 102/43 L 95 03/18/16 08:02 03/18/16 08:03 03/18/16 08:02 03/18/16 08:03 03/18/16 08:02 Intake & Output 03/17/16 03/18/16 03/19/16 06:59 06:59 06:59 Intake Total 3701 1800 Output Total 550 1070 Balance 3151 730 Weight 68.4 kg General appearance: PRESENT: no acute distress, cooperative Head exam: PRESENT: atraumatic, normocephalic Eye exam: PRESENT: EOMI, PERRLA. ABSENT: nystagmus, periorbital swelling, scleral icterus Neck exam: ABSENT: meningismus, tenderness, thyromegaly Respiratory exam: PRESENT: clear to auscultation [place], symmetrical, unlabored. ABSENT: chest wall tenderness Cardiovascular exam: PRESENT: RRR, +S1 Pulses: PRESENT: normal carotid pulses GI/Abdominal exam: PRESENT: normal bowel sounds, soft. ABSENT: distended, guarding, Kauffman's sign, rebound, rigid Extremities exam: ABSENT: joint swelling Neurological exam: PRESENT: alert, awake, oriented to time, oriented to situation, CN II-XII grossly intact Psychiatric exam: PRESENT: appropriate affect Skin exam: PRESENT: normal color. ABSENT: mottled, pallor, petechiae, urticaria , vesicles Results Laboratory Results: 03/17/16 14:40 03/17/16 08:20 03/17/16 03/17/16 14:40 14:40 WBC 9.5 RBC 2.87 L Hgb 8.1 L Hct 25.1 L MCV 88 MCH 28.1 MCHC 32.1 RDW 14.2 H Plt Count 157 Free T4 1.04 Free T3 pg/mL 2.48 L 03/16/16 03/16/16 03/17/16 16:55 20:04 02:23 Troponin I 0.021 0.026 0.028 Impressions: Limited or Localized CT 03/16/16 00:00 IMPRESSION: Infrarenal abdominal aortic aneurysm as noted above measuring 4.1 x 5.3 cm in diameters. Small gallstones. Other findings as noted above Renal Ultrasound 03/16/16 00:00 IMPRESSION: There is hyperechoic irregular thickening of the right bladder wall which shows internal color Doppler flow, this area measures 2.9 x 2.3 x 0.8 cm, concerning for infiltrating lesion. No hydronephrosis. Cervical Spine CT 03/16/16 11:34 IMPRESSION: CHRONIC DEGENERATIVE CHANGES. NO ACUTE FINDINGS. Head CT 03/16/16 11:34 IMPRESSION: 1. No acute intracranial abnormality. No skull fracture. 2. Age-related brain matter volume involution with compensatory ventriculomegaly and CSF space dilatation. Chronic microvascular a disease changes in the supratentorial white matter. Facial Bones CT 03/16/16 11:42 IMPRESSION: No acute facial bone fractures. Chest X-Ray 03/16/16 14:48 IMPRESSION: NO ACUTE RADIOGRAPHIC FINDING IN THE CHEST. Assessment & Plan - Diagnosis (1) GI hemorrhage Qualifiers: GI bleed type/associated pathology: unspecified gastrointestinal hemorrhage type Qualified Code(s): K92.2 - Gastrointestinal hemorrhage, unspecified Is this a current diagnosis for this admission?: YesPlan: Stabilized. Start on PPI will need twice a day dosing. We'll await on biopsies treat if necessary He was dilated so can start clears and advance as tolerated Preferably stop all anticoagulation if possible Follow-up EGD in 6-8 weeks to document healing May need repeat dilatation at that point in time
[2016-03-18 11:08] LABS: ABSOLUTE EOSINOPHILS # (AUTO) 0.2 10^3/uL (0.0-0.6); ABSOLUTE LYMPHOCYTES (AUTO) 1.2 10^3/uL (0.5-4.7); ABSOLUTE MONOCYTES (AUTO) 0.7 10^3/uL (0.1-1.4); ABSOLUTE NEUT (AUTO) 5.6 10^3/uL (1.7-8.2); BASOPHILS % (AUTO) 0.6 % (0-2); EOSINOPHILS % (AUTO) 2.2 % (0-6); HEMATOCRIT 32.2 % (37.9-51.0); HGB HCT DIFFERENCE -0.7; LYMPHOCYTES % (AUTO) 15.6 % (13-45); MEAN CORPUSCULAR HGB CONC 32.7 g/dL (32.0-36.0); MEAN CORPUSCULAR VOLUME 89 fl (80-97); MONOCYTES % (AUTO) 9.1 % (3-13); RED BLOOD COUNT 3.63 10^6/uL (4.35-5.55); SEGMENTED NEUTROPHILS % (AUTO) 72.5 % (42-78); WHITE BLOOD COUNT 7.7 10^3/uL (4.0-10.5)
[2016-03-18 11:20] LABS: HEMOGLOBIN 10.5 g/dL (13.5-17.0)
--- NOTE | 2016-03-18 17:36 | PDOC PROGRESS REPORT ---
Subjective Progress Note for:: 03/18/16 Subjective:: No complaints overnight. Patient denies chest pain, shortness of breath, abdominal pain, nausea, vomiting , fevers, chills, diarrhea, constipation, headache, new onset weakness. Physical Exam Vital Signs: Temp Pulse Resp BP Pulse Ox 98.0 F 59 L 20 102/43 L 95 03/18/16 08:02 03/18/16 08:03 03/18/16 08:02 03/18/16 08:03 03/18/16 08:02 Intake & Output 03/17/16 03/18/16 03/19/16 06:59 06:59 06:59 Intake Total 3701 1800 Output Total 550 1070 Balance 3151 730 Weight 68.4 kg Exam: General: Awake alert and orientedx3, no acute respiratory distress HEENT: Facial ecchymosis, NC, PERRL, EOMI, oropharynx is moist, pale, no scleral icterus, no conjunctival injection Neck: No JVD, trachea midline Chest: Clear to auscultation bilaterally, no wheezes, rhonchi, or rales CV: Regular rate and rhythm, normal S1 and S2, no murmur, rub, or gallop Abdomen: Soft, nontender to palpation, nondistended, active bowel sounds; no rebound, rigidity, or guarding Extremities: No cyanosis, clubbing or edema Neuro: Cranial nerves II through XII are grossly intact without focal deficits; awake alert and oriented x3 Psych: Normal mood and affect Skin: Ecchymosis on right elbow with stitches clean and well approximated, ecchymosis right knee, facial ecchymosis across bridge of nose, Results Laboratory Results: 03/17/16 14:40 03/17/16 08:20 03/17/16 03/17/16 14:40 14:40 WBC 9.5 RBC 2.87 L Hgb 8.1 L Hct 25.1 L MCV 88 MCH 28.1 MCHC 32.1 RDW 14.2 H Plt Count 157 Free T4 1.04 Free T3 pg/mL 2.48 L 03/16/16 03/16/16 03/17/16 16:55 20:04 02:23 Troponin I 0.021 0.026 0.028 Impressions: Limited or Localized CT 03/16/16 00:00 IMPRESSION: Infrarenal abdominal aortic aneurysm as noted above measuring 4.1 x 5.3 cm in diameters. Small gallstones. Other findings as noted above Renal Ultrasound 03/16/16 00:00 IMPRESSION: There is hyperechoic irregular thickening of the right bladder wall which shows internal color Doppler flow, this area measures 2.9 x 2.3 x 0.8 cm, concerning for infiltrating lesion. No hydronephrosis. Cervical Spine CT 03/16/16 11:34 IMPRESSION: CHRONIC DEGENERATIVE CHANGES. NO ACUTE FINDINGS. Head CT 03/16/16 11:34 IMPRESSION: 1. No acute intracranial abnormality. No skull fracture. 2. Age-related brain matter volume involution with compensatory ventriculomegaly and CSF space dilatation. Chronic microvascular a disease changes in the supratentorial white matter. Facial Bones CT 03/16/16 11:42 IMPRESSION: No acute facial bone fractures. Chest X-Ray 03/16/16 14:48 IMPRESSION: NO ACUTE RADIOGRAPHIC FINDING IN THE CHEST. Assessment & Plan - Diagnosis (1) Syncope Qualifiers: Syncope type: unspecified Qualified Code(s): R55 - Syncope and collapse Is this a current diagnosis for this admission?: YesPlan: Likely secondary to underlying sepsis and GI hemorrhage. Patient is currently not hypoxic, but have considered PE as part of this differential. However, in light of patient's active bleeding we will avoid anticoagulation at this time. Patient is been instructed not to get out of bed without assistance. (2) Sepsis Qualifiers: Sepsis type: sepsis due to unspecified organism Qualified Code(s): A41.9 - Sepsis, unspecified organism Is this a current diagnosis for this admission?: YesPlan: Patient grew out Morganella morganii and Escherichia coli. Both are sensitive to Levaquin. We'll transition to this. (3) UTI (urinary tract infection) Qualifiers: Urinary tract infection type: acute cystitis Hematuria presence: without hematuria Qualified Code(s): N30.00 - Acute cystitis without hematuria Is this a current diagnosis for this admission?: YesPlan: Patient grew out Morganella morganii and Escherichia coli. Both are sensitive to Levaquin. We'll transition to this. (4) GI hemorrhage Qualifiers: GI bleed type/associated pathology: unspecified gastrointestinal hemorrhage type Qualified Code(s): K92.2 - Gastrointestinal hemorrhage, unspecified Is this a current diagnosis for this admission?: YesPlan: Patient found to have 2 ulcers at the gastric outlet and a gastric outlet obstruction from these. This was dilated and biopsied. Patient placed on prevacid 30mg po bid. Advised to avoid NSAIDS, ASA, and plavix at this time. (5) Hyperlipidemia Is this a current diagnosis for this admission?: Yes (6) H/O heart valve replacement with bioprosthetic valve Is this a current diagnosis for this admission?: Yes (7) Facial trauma Qualifiers: Encounter type: initial encounter Qualified Code(s): S09.93XA - Unspecified injury of face, initial encounter Is this a current diagnosis for this admission?: Yes (8) Acute kidney injury Is this a current diagnosis for this admission?: YesPlan: Patient likely has an acute kidney injury superimposed on chronic renal disease. Creatinine slightly improved. Patient likely has baseline renal dysfunction. (9) Peripheral artery disease Is this a current diagnosis for this admission?: YesPlan: Patient has significant left lower extremity disease. Patient is also found to have a significant infrarenal AAA. (10) Mass of urinary bladder determined by ultrasound Is this a current diagnosis for this admission?: YesPlan: Referred to Dr. Prasad of urology. Patient likely require outpatient workup. He is normally on Plavix. (11) Acute blood loss anemia Is this a current diagnosis for this admission?: YesPlan: Patient received 2 units of packed red blood cells on 03/17/2016. His hemoglobin today is 10.2. (12) Gastric ulceration Qualifiers: Gastric ulcer chronicity: acute Gastric ulcer complication status: with hemorrhage Qualified Code(s): K25.0 - Acute gastric ulcer with hemorrhage Is this a current diagnosis for this admission?: Yes - Time Time Spent with patient: 25-34 minutes Medications reviewed and adjusted accordingly: Yes Anticipated discharge: Home Within: within 48 hours
[2016-03-18] MEDS ORDERED: LEVOFLOXACIN 500 MG TABLET PO ONE (18:00)
[2016-03-18] MEDS: TAMSULOSIN HCL 0.4 MG CAP.SR.24H PO SCH (22:35)
[2016-03-19] MEDS: HYDROCODONE/ACETAMINOPHEN 5-325 MG TABLET PO PRN ×2 (01:12→10:30)
[2016-03-19] MEDS ORDERED: ZOLPIDEM TARTRATE 5 MG TABLET PO PRN (01:13)
[2016-03-19] MEDS ORDERED: LEVOTHYROXINE SODIUM 0.025 MG TABLET PO SCH (06:00)
[2016-03-19] MEDS: LANSOPRAZOLE 30 MG TAB.RAP.DR PO SCH ×2 (06:19→18:00)
[2016-03-19] MEDS: SUCRALFATE SUSP 1 GM/10 ML UDCUP PO SCH ×4 (06:19→23:43)
[2016-03-19 08:54] LABS: ABSOLUTE EOSINOPHILS # (AUTO) 0.3 10^3/uL (0.0-0.6); ABSOLUTE LYMPHOCYTES (AUTO) 1.3 10^3/uL (0.5-4.7); BASOPHILS % (AUTO) 0.4 % (0-2); HEMATOCRIT 34.6 % (37.9-51.0); HEMOGLOBIN 11.3 g/dL (13.5-17.0); HGB HCT DIFFERENCE -0.7; LYMPHOCYTES % (AUTO) 12.6 % (13-45); MEAN CORPUSCULAR HEMOGLOBIN 28.8 pg (27.0-33.4); MEAN CORPUSCULAR HGB CONC 32.6 g/dL (32.0-36.0); MEAN CORPUSCULAR VOLUME 88 fl (80-97); MONOCYTES % (AUTO) 9.6 % (3-13); RED BLOOD COUNT 3.92 10^6/uL (4.35-5.55); RED CELL DISTRIBUTION WIDTH 14.4 % (11.5-14.0); SEGMENTED NEUTROPHILS % (AUTO) 74.4 % (42-78); WHITE BLOOD COUNT 10.7 10^3/uL (4.0-10.5)
[2016-03-19 09:13] LABS: ANION GAP 8 (5-19); BLOOD UREA NITROGEN 29 mg/dL (7-20); CARBON DIOXIDE 25 mmol/L (22-30); CHLORIDE 109 mmol/L (98-107); CREATININE RESULT 1.21 mg/dL (0.52-1.25); GLUCOSE 103 mg/dL (75-110); POTASSIUM 3.6 mmol/L (3.6-5.0)
[2016-03-19] MEDS: CYANOCOBALAMIN (VITAMIN B-12) INJ 1000 MCG/1 ML VIAL IM SCH (09:38)
[2016-03-19] MEDS: LEVOFLOXACIN 500 MG TABLET PO SCH (09:39)
--- NOTE | 2016-03-19 10:35 | PDOC PROGRESS REPORT ---
Subjective Progress Note for:: 03/19/16 Subjective:: Patient has a possible bladder tumor per ultrasound. See the dictated consultation for further information Physical Exam Vital Signs: Temp Pulse Resp BP Pulse Ox 97.6 F 75 21 H 156/76 H 91 L 03/19/16 08:02 03/19/16 08:02 03/19/16 08:02 03/19/16 08:02 03/19/16 08:02 Intake & Output 03/18/16 03/19/16 03/20/16 06:59 06:59 06:59 Intake Total 1800 700 Output Total 1070 925 Balance 730 -225 Weight 70.2 kg Results Laboratory Results: 03/19/16 08:20 03/19/16 08:20 03/18/16 03/19/16 03/19/16 10:57 08:20 08:20 WBC 7.7 10.7 H RBC 3.63 L 3.92 L Hgb 10.5 L D 11.3 L Hct 32.2 L 34.6 L MCV 89 88 MCH 29.0 28.8 MCHC 32.7 32.6 RDW 14.0 14.4 H Plt Count 131 L 150 Seg Neutrophils % 72.5 74.4 Lymphocytes % 15.6 12.6 L Monocytes % 9.1 9.6 Eosinophils % 2.2 3.0 Basophils % 0.6 0.4 Absolute Neutrophils 5.6 8.0 Absolute Lymphocytes 1.2 1.3 Absolute Monocytes 0.7 1.0 Absolute Eosinophils 0.2 0.3 Absolute Basophils 0.0 0.0 Sodium 142.0 Potassium 3.6 Chloride 109 H Carbon Dioxide 25 Anion Gap 8 BUN 29 H Creatinine 1.21 Est GFR ( Amer) > 60 Est GFR (Non-Af Amer) 57 L Glucose 103 Calcium 8.0 L 03/16/16 03/16/16 03/17/16 16:55 20:04 02:23 Troponin I 0.021 0.026 0.028 Impressions: Limited or Localized CT 03/16/16 00:00 IMPRESSION: Infrarenal abdominal aortic aneurysm as noted above measuring 4.1 x 5.3 cm in diameters. Small gallstones. Other findings as noted above Renal Ultrasound 03/16/16 00:00 IMPRESSION: There is hyperechoic irregular thickening of the right bladder wall which shows internal color Doppler flow, this area measures 2.9 x 2.3 x 0.8 cm, concerning for infiltrating lesion. No hydronephrosis. Cervical Spine CT 03/16/16 11:34 IMPRESSION: CHRONIC DEGENERATIVE CHANGES. NO ACUTE FINDINGS. Head CT 03/16/16 11:34 IMPRESSION: 1. No acute intracranial abnormality. No skull fracture. 2. Age-related brain matter volume involution with compensatory ventriculomegaly and CSF space dilatation. Chronic microvascular a disease changes in the supratentorial white matter. Facial Bones CT 03/16/16 11:42 IMPRESSION: No acute facial bone fractures. Chest X-Ray 03/19/16 00:00 IMPRESSION: Congestive heart failure and interstitial pulmonary edema. Assessment & Plan - Plan Summary Plan Summary: Patient has possible bladder tumor, phimosis and BPH with lower urinary tract symptoms. Patient will need to follow-up with Dr. Huey Raymundo at [facility] next week.
[2016-03-19] MEDS ORDERED: FUROSEMIDE INJ/PF 20 MG/2 ML SDV IV ONE ×2 (11:17→17:08)
--- NOTE | 2016-03-19 11:18 | CONSULTATION REPORT E ---
Consultation Report NAME: KEMAL JACKSON : 1925 AGE: 89Y DATE: 03/19/2016 323 A TO: RAVEN SAGE M.D. FROM: MYKEL AMAYA M.D. Requesting Physician REASON FOR CONSULTATION: Bladder mass. HISTORY OF PRESENT ILLNESS: The patient is an 89-year-old male admitted through the emergency room with syncope and who eventually was found to have an E. coli UTI. The patient has a long history of BPH with lower urinary tract symptoms and currently takes tamsulosin 0.4 mg per day. He is being treated for this condition by his primary care physician. He denied having seen a urologist previously. Current urinary symptoms include decreased force of urinary stream and urgency. He denied straining, incomplete emptying, frequency, or nocturia. Patient also denied flank pain, dysuria, or gross hematuria. Renal ultrasound performed on 03/16 indicated a 2.9 x 2.3 x 0.8 cm mass in the right bladder wall consistent with possible bladder tumor. The mass showed internal color Doppler flow. Urine culture dated 03/16 revealed 80-90,000 colonies of E. coli. Limited renal stone protocol CT dated 03/16 indicated normal kidneys without stone, mass, or obstruction. ALLERGIES: No drug allergies. CHRONIC HOME MEDICATIONS: 1. Plavix. 2. Vytorin. 3. Hydrochlorothiazide. 4. Naproxen. 5. Tamsulosin. PAST SURGICAL HISTORY: A bioprosthetic heart valve replacement. SOCIAL HISTORY: Patient quit smoking 20 years ago with a 50-pack year history. He denies alcohol use. FAMILY HISTORY: Negative for bladder cancer, prostate cancer, or kidney stones. PAST AND CURRENT MEDICAL CONDITIONS: 1. Cardiac valve disease, status post heart valve replacement. 2. Aortic aneurysm. 3. COPD. 4. Hyperlipidemia. 5. Chronic insomnia. 6. Possible coronary artery disease. REVIEW OF SYSTEMS: Patient denied flank pain, dysuria, fever, chills, gross hematuria, history of bladder cancer, or history of kidney stones. PHYSICAL EXAMINATION: GENERAL: Elderly white male in no distress. GASTROINTESTINAL: Abdomen was soft. No CVA tenderness. No palpable abdominal masses. GENITOURINARY: Patient was uncircumcised with severe phimosis. He had a 2 mm aperture of his distal prepuce. Testes were atrophic, 16 mL in size each. Rectal exam, 35 g. , smooth, nontender prostate. NEUROMUSCULAR: Alert and oriented x3. IMPRESSION: 1. Possible bladder tumor. 2. Phimosis. 3. BPH with lower urinary tract symptoms. SUGGESTIONS: 1. Refer to Dr. Raymundo at [facility] for followup and possible cystoscopy. 2. Consider a dorsal slit or circumcision per Dr. Raymundo's recommendations after followup. 3. Continue tamsulosin for BPH. DICTATING PHYSICIAN: RAVEN SAGE M.D. [id number] PHY#: [id number] ID: [id number] JOB#: [id number] ACCT: [id number] cc:MYKEL AMAYA M.D., MICHAEL M.D. > MTDD
[2016-03-19] MEDS ORDERED: MORPHINE SULFATE 10 MG/ML INJ IV ONE (11:22)
[2016-03-19] MEDS ORDERED: BISACODYL 10 MG SUPP.RECT PR PRN (11:26)
[2016-03-19] MEDS ORDERED: BISACODYL 10 MG SUPP.RECT PR ONE (11:45)
[2016-03-19] MEDS ORDERED: POTASSIUM CHLORIDE 10 MEQ TABLET.SA PO ONE ×2 (11:45→17:08)
--- NOTE | 2016-03-19 14:14 | PDOC PROGRESS REPORT ---
Subjective Progress Note for:: 03/19/16 Subjective:: Patient complains of back and abdominal pain. Patient denies chest pain, shortness of breath, nausea, vomiting, fevers, chills, diarrhea, constipation, headache, new onset weakness. Physical Exam Vital Signs: Temp Pulse Resp BP Pulse Ox 97.5 F 64 20 149/69 H 91 L 03/19/16 12:17 03/19/16 12:17 03/19/16 12:17 03/19/16 12:17 03/19/16 08:02 Intake & Output 03/18/16 03/19/16 03/20/16 06:59 06:59 06:59 Intake Total 1800 700 Output Total 1070 925 Balance 730 -225 Weight 70.2 kg Exam: General: Awake alert and orientedx3, mild respiratory distress HEENT: Facial ecchymosis, NC, PERRL, EOMI, oropharynx is moist, pale, no scleral icterus, no conjunctival injection Neck: No JVD, trachea midline Chest: Diminished bases bilaterally, bilateral rales CV: Regular rate and rhythm, normal S1 and S2, no murmur, rub, or gallop Abdomen: Voluntary guarding, tenderness to palpation left upper quadrant, no rebound, no rigidity Extremities: No cyanosis, clubbing; edema Neuro: Cranial nerves II through XII are grossly intact without focal deficits; awake alert and oriented x3 Psych: Normal mood and affect Skin: Ecchymosis on right elbow with stitches clean and well approximated, ecchymosis right knee, facial ecchymosis across bridge of nose, Results Laboratory Results: 03/19/16 08:20 03/19/16 08:20 03/19/16 03/19/16 08:20 08:20 WBC 10.7 H RBC 3.92 L Hgb 11.3 L Hct 34.6 L MCV 88 MCH 28.8 MCHC 32.6 RDW 14.4 H Plt Count 150 Seg Neutrophils % 74.4 Lymphocytes % 12.6 L Monocytes % 9.6 Eosinophils % 3.0 Basophils % 0.4 Absolute Neutrophils 8.0 Absolute Lymphocytes 1.3 Absolute Monocytes 1.0 Absolute Eosinophils 0.3 Absolute Basophils 0.0 Sodium 142.0 Potassium 3.6 Chloride 109 H Carbon Dioxide 25 Anion Gap 8 BUN 29 H Creatinine 1.21 Est GFR ( Amer) > 60 Est GFR (Non-Af Amer) 57 L Glucose 103 Calcium 8.0 L 03/16/16 03/16/16 03/17/16 16:55 20:04 02:23 Troponin I 0.021 0.026 0.028 Impressions: Limited or Localized CT 03/16/16 00:00 IMPRESSION: Infrarenal abdominal aortic aneurysm as noted above measuring 4.1 x 5.3 cm in diameters. Small gallstones. Other findings as noted above Renal Ultrasound 03/16/16 00:00 IMPRESSION: There is hyperechoic irregular thickening of the right bladder wall which shows internal color Doppler flow, this area measures 2.9 x 2.3 x 0.8 cm, concerning for infiltrating lesion. No hydronephrosis. Cervical Spine CT 03/16/16 11:34 IMPRESSION: CHRONIC DEGENERATIVE CHANGES. NO ACUTE FINDINGS. Head CT 03/16/16 11:34 IMPRESSION: 1. No acute intracranial abnormality. No skull fracture. 2. Age-related brain matter volume involution with compensatory ventriculomegaly and CSF space dilatation. Chronic microvascular a disease changes in the supratentorial white matter. Facial Bones CT 03/16/16 11:42 IMPRESSION: No acute facial bone fractures. Abdomen/Pelvis CT 03/19/16 00:00 IMPRESSION: Moderately large bilateral pleural effusions with basilar atelectasis/ air bronchograms. Significantly increased since 03/16/2016. Stable saccular aneurysm. Gallstones. Stable probably old compression fracture of L3. Chest X-Ray 03/19/16 00:00 IMPRESSION: Congestive heart failure and interstitial pulmonary edema. Assessment & Plan - Diagnosis (1) Syncope Qualifiers: Syncope type: unspecified Qualified Code(s): R55 - Syncope and collapse Is this a current diagnosis for this admission?: YesPlan: Likely secondary to underlying sepsis and GI hemorrhage. Patient is currently not hypoxic, but have considered PE as part of this differential. However, in light of patient's active bleeding we will avoid anticoagulation at this time. Patient is been instructed not to get out of bed without assistance. (2) Sepsis Qualifiers: Sepsis type: Escherichia coli Qualified Code(s): A41.51 - Sepsis due to Escherichia coli [E. coli] Is this a current diagnosis for this admission?: YesPlan: Patient grew out Morganella morganii and Escherichia coli. Both are sensitive to Levaquin. We'll transition to this. (3) UTI (urinary tract infection) Qualifiers: Urinary tract infection type: acute cystitis Hematuria presence: without hematuria Qualified Code(s): N30.00 - Acute cystitis without hematuria Is this a current diagnosis for this admission?: YesPlan: Patient grew out Morganella morganii and Escherichia coli. Both are sensitive to Levaquin. We'll transition to this. (4) GI hemorrhage Qualifiers: GI bleed type/associated pathology: unspecified gastrointestinal hemorrhage type Qualified Code(s): K92.2 - Gastrointestinal hemorrhage, unspecified Is this a current diagnosis for this admission?: YesPlan: Patient found to have 2 ulcers at the gastric outlet and a gastric outlet obstruction from these. This was dilated and biopsied. Patient placed on prevacid 30mg po bid. Advised to avoid NSAIDS, ASA, and plavix at this time. (5) Hyperlipidemia Is this a current diagnosis for this admission?: Yes (6) H/O heart valve replacement with bioprosthetic valve Is this a current diagnosis for this admission?: Yes (7) Facial trauma Qualifiers: Encounter type: initial encounter Qualified Code(s): S09.93XA - Unspecified injury of face, initial encounter Is this a current diagnosis for this admission?: Yes (8) Acute kidney injury Is this a current diagnosis for this admission?: Yes (9) Peripheral artery disease Is this a current diagnosis for this admission?: Yes (10) Mass of urinary bladder determined by ultrasound Is this a current diagnosis for this admission?: YesPlan: Appreciate Dr. Prasad of urology. Patient likely require outpatient workup. He is normally on Plavix. (11) Acute blood loss anemia Is this a current diagnosis for this admission?: YesPlan: Patient received 2 units of packed red blood cells on 03/17/2016. Hemoglobin remained stable. (12) Gastric ulceration Qualifiers: Gastric ulcer chronicity: acute Gastric ulcer complication status: with hemorrhage Qualified Code(s): K25.0 - Acute gastric ulcer with hemorrhage Is this a current diagnosis for this admission?: Yes (13) Acute on chronic congestive heart failure Qualifiers: Congestive heart failure type: diastolic Qualified Code(s): I50.33 - Acute on chronic diastolic (congestive) heart failure Is this a current diagnosis for this admission?: YesPlan: Likely diastolic failure. Patient with pleural effusions and evidence of volume overload. IV fluids have been stopped Lasix administered. (14) Abdominal pain Qualifiers: Abdominal location: left upper quadrant Qualified Code(s): R10.12 - Left upper quadrant pain Is this a current diagnosis for this admission?: YesPlan: We'll check CT of the abdomen. - Time Time Spent with patient: 25-34 minutes Medications reviewed and adjusted accordingly: Yes
[2016-03-19] MEDS: TAMSULOSIN HCL 0.4 MG CAP.SR.24H PO SCH (23:43)
[2016-03-20 06:02] LABS: ABSOLUTE BASOPHILS # (AUTO) 0.1 10^3/uL (0.0-0.2); ABSOLUTE EOSINOPHILS # (AUTO) 0.4 10^3/uL (0.0-0.6); ABSOLUTE LYMPHOCYTES (AUTO) 1.6 10^3/uL (0.5-4.7); ABSOLUTE MONOCYTES (AUTO) 1.4 10^3/uL (0.1-1.4); ABSOLUTE NEUT (AUTO) 7.9 10^3/uL (1.7-8.2); BASOPHILS % (AUTO) 0.5 % (0-2); EOSINOPHILS % (AUTO) 3.2 % (0-6); HEMATOCRIT 37.9 % (37.9-51.0); HEMOGLOBIN 12.8 g/dL (13.5-17.0); HGB HCT DIFFERENCE 0.5; LYMPHOCYTES % (AUTO) 14.2 % (13-45); MEAN CORPUSCULAR HEMOGLOBIN 28.9 pg (27.0-33.4); MEAN CORPUSCULAR HGB CONC 33.7 g/dL (32.0-36.0); MEAN CORPUSCULAR VOLUME 86 fl (80-97); MONOCYTES % (AUTO) 12.3 % (3-13); RED BLOOD COUNT 4.41 10^6/uL (4.35-5.55); RED CELL DISTRIBUTION WIDTH 13.9 % (11.5-14.0); SEGMENTED NEUTROPHILS % (AUTO) 69.8 % (42-78); WHITE BLOOD COUNT 11.3 10^3/uL (4.0-10.5)
[2016-03-20] MEDS: SUCRALFATE SUSP 1 GM/10 ML UDCUP PO SCH ×4 (06:26→23:34)
[2016-03-20] MEDS: LANSOPRAZOLE 30 MG TAB.RAP.DR PO SCH ×2 (06:26→17:07)
[2016-03-20 06:36] LABS: ANION GAP 10 (5-19); BLOOD UREA NITROGEN 23 mg/dL (7-20); CALCIUM 8.6 mg/dL (8.4-10.2); CARBON DIOXIDE 30 mmol/L (22-30); CHLORIDE 104 mmol/L (98-107); CREATININE RESULT 1.37 mg/dL (0.52-1.25); GLUCOSE 97 mg/dL (75-110); MAGNESIUM 1.5 mg/dL (1.6-2.3); POTASSIUM 3.9 mmol/L (3.6-5.0); SODIUM 143.6 mmol/L (137-145)
[2016-03-20] MEDS ORDERED: MAGNESIUM SULFATE/D5W 100 ML IV SCH (08:00)
[2016-03-20] MEDS: LEVOFLOXACIN 500 MG TABLET PO SCH (09:40)
[2016-03-20] MEDS: CYANOCOBALAMIN (VITAMIN B-12) INJ 1000 MCG/1 ML VIAL IM SCH (09:40)
[2016-03-20] MEDS: LEVOTHYROXINE SODIUM 0.025 MG TABLET PO SCH (09:40)
[2016-03-20] MEDS: POTASSIUM CHLORIDE 10 MEQ TABLET.SA PO SCH (09:41)
[2016-03-20] MEDS: LIDOCAINE 5% (700 MG) TRANSDERMAL ADH..PATCH TP SCH (10:45)
[2016-03-20] MEDS: BUMETANIDE INJ/PF 1 MG/4 ML SDV IV SCH ×2 (10:49→18:50)
--- NOTE | 2016-03-20 11:24 | PDOC PROGRESS REPORT ---
Subjective Progress Note for:: 03/20/16 Subjective:: no further bleeding over the past 48 hours Hgb is stable post transfusion ? 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 ABSENT: scleral icterus Mouth exam: PRESENT: neck supple, tongue midline Neck exam: ABSENT: meningismus, tenderness, thyromegaly Respiratory exam: PRESENT: clear to auscultation [place], symmetrical. ABSENT: accessory muscle use, unlabored Cardiovascular exam: PRESENT: RRR, +S1, +S2 Pulses: PRESENT: normal carotid pulses GI/Abdominal exam: PRESENT: normal bowel sounds, soft. ABSENT: guarding, Kauffman 's sign, rebound, rigid, tenderness Neurological exam: PRESENT: awake, oriented to person, oriented to place, CN II- XII grossly intact Psychiatric exam: PRESENT: appropriate affect Skin exam: PRESENT: normal color. ABSENT: mottled, pallor, petechiae, urticaria , vesicles Results Laboratory Results: 03/20/16 05:29 03/20/16 05:29 03/20/16 03/20/16 05:29 05:29 WBC 11.3 H RBC 4.41 Hgb 12.8 L Hct 37.9 MCV 86 MCH 28.9 MCHC 33.7 RDW 13.9 Plt Count 209 Seg Neutrophils % 69.8 Lymphocytes % 14.2 Monocytes % 12.3 Eosinophils % 3.2 Basophils % 0.5 Absolute Neutrophils 7.9 Absolute Lymphocytes 1.6 Absolute Monocytes 1.4 Absolute Eosinophils 0.4 Absolute Basophils 0.1 Sodium 143.6 Potassium 3.9 Chloride 104 Carbon Dioxide 30 Anion Gap 10 BUN 23 H Creatinine 1.37 H Est GFR ( Amer) 59 L Est GFR (Non-Af Amer) 49 L Glucose 97 Calcium 8.6 Magnesium 1.5 L 03/16/16 03/16/16 03/17/16 16:55 20:04 02:23 Troponin I 0.021 0.026 0.028 Impressions: Limited or Localized CT 03/16/16 00:00 IMPRESSION: Infrarenal abdominal aortic aneurysm as noted above measuring 4.1 x 5.3 cm in diameters. Small gallstones. Other findings as noted above Renal Ultrasound 03/16/16 00:00 IMPRESSION: There is hyperechoic irregular thickening of the right bladder wall which shows internal color Doppler flow, this area measures 2.9 x 2.3 x 0.8 cm, concerning for infiltrating lesion. No hydronephrosis. Cervical Spine CT 03/16/16 11:34 IMPRESSION: CHRONIC DEGENERATIVE CHANGES. NO ACUTE FINDINGS. Head CT 03/16/16 11:34 IMPRESSION: 1. No acute intracranial abnormality. No skull fracture. 2. Age-related brain matter volume involution with compensatory ventriculomegaly and CSF space dilatation. Chronic microvascular a disease changes in the supratentorial white matter. Facial Bones CT 03/16/16 11:42 IMPRESSION: No acute facial bone fractures. Abdomen/Pelvis CT 03/19/16 00:00 IMPRESSION: Moderately large bilateral pleural effusions with basilar atelectasis/ air bronchograms. Significantly increased since 03/16/2016. Stable saccular aneurysm. Gallstones. Stable probably old compression fracture of L3. Chest X-Ray 03/19/16 00:00 IMPRESSION: Congestive heart failure and interstitial pulmonary edema. Assessment & Plan - Diagnosis (1) GI hemorrhage Qualifiers: GI bleed type/associated pathology: unspecified gastrointestinal hemorrhage type Qualified Code(s): K92.2 - Gastrointestinal hemorrhage, unspecified Is this a current diagnosis for this admission?: YesPlan: stable, no further bleeding follow up EGD in 6-8 weeks to document healing of the ulcer may need repeat dilation at that time continue PPI avoid anticoagulation if possible transfuse if necessary
[2016-03-20] MEDS ORDERED: MAGNESIUM SULFATE/D5W 1 GM/100 ML RTUPB IV ONE (12:00)
--- NOTE | 2016-03-20 17:23 | PDOC PROGRESS REPORT ---
Subjective Progress Note for:: 03/20/16 Subjective:: Patient reports he is breathing much better. Patient denies chest pain, shortness of breath, abdominal pain, nausea, vomiting, fevers, chills, diarrhea , constipation, headache, new onset weakness. Physical Exam Vital Signs: Temp Pulse Resp BP Pulse Ox 97.7 F 92 22 H 108/54 L 95 03/20/16 04:15 03/20/16 04:15 03/20/16 04:15 03/20/16 04:15 03/20/16 04:15 Intake & Output 03/19/16 03/20/16 03/21/16 06:59 06:59 06:59 Intake Total 700 1330 Output Total 925 4700 Balance -225 -3370 Weight 70.2 kg 72.8 kg Exam: General: Awake alert and orientedx3, no acute distress HEENT: Facial ecchymosis, NC, PERRL, oropharynx is moist, pale, no scleral icterus, no conjunctival injection Neck: No JVD, trachea midline Chest: Diminished bases bilaterally, otherwise clear CV: Regular rate and rhythm, normal S1 and S2, no murmur, rub, or gallop Abdomen: Soft, nontender to palpation, nondistended, no rebound rigidity or guarding, bowel sounds present 4 Extremities: No cyanosis, clubbing; 1+ edema Neuro: Cranial nerves II through XII are grossly intact without focal deficits; awake alert and oriented x3 Psych: Normal mood and affect Skin: Ecchymosis on right elbow with stitches clean and well approximated, ecchymosis right knee, facial ecchymosis across bridge of nose, Results Laboratory Results: 03/20/16 05:29 03/20/16 05:29 03/19/16 03/19/16 03/20/16 08:20 08:20 05:29 WBC 10.7 H 11.3 H RBC 3.92 L 4.41 Hgb 11.3 L 12.8 L Hct 34.6 L 37.9 MCV 88 86 MCH 28.8 28.9 MCHC 32.6 33.7 RDW 14.4 H 13.9 Plt Count 150 209 Seg Neutrophils % 74.4 69.8 Lymphocytes % 12.6 L 14.2 Monocytes % 9.6 12.3 Eosinophils % 3.0 3.2 Basophils % 0.4 0.5 Absolute Neutrophils 8.0 7.9 Absolute Lymphocytes 1.3 1.6 Absolute Monocytes 1.0 1.4 Absolute Eosinophils 0.3 0.4 Absolute Basophils 0.0 0.1 Sodium 142.0 Potassium 3.6 Chloride 109 H Carbon Dioxide 25 Anion Gap 8 BUN 29 H Creatinine 1.21 Est GFR ( Amer) > 60 Est GFR (Non-Af Amer) 57 L Glucose 103 Calcium 8.0 L Magnesium 03/20/16 05:29 WBC RBC Hgb Hct MCV MCH MCHC RDW Plt Count Seg Neutrophils % Lymphocytes % Monocytes % Eosinophils % Basophils % Absolute Neutrophils Absolute Lymphocytes Absolute Monocytes Absolute Eosinophils Absolute Basophils Sodium 143.6 Potassium 3.9 Chloride 104 Carbon Dioxide 30 Anion Gap 10 BUN 23 H Creatinine 1.37 H Est GFR ( Amer) 59 L Est GFR (Non-Af Amer) 49 L Glucose 97 Calcium 8.6 Magnesium 1.5 L 03/16/16 03/16/16 03/17/16 16:55 20:04 02:23 Troponin I 0.021 0.026 0.028 Impressions: Limited or Localized CT 03/16/16 00:00 IMPRESSION: Infrarenal abdominal aortic aneurysm as noted above measuring 4.1 x 5.3 cm in diameters. Small gallstones. Other findings as noted above Renal Ultrasound 03/16/16 00:00 IMPRESSION: There is hyperechoic irregular thickening of the right bladder wall which shows internal color Doppler flow, this area measures 2.9 x 2.3 x 0.8 cm, concerning for infiltrating lesion. No hydronephrosis. Cervical Spine CT 03/16/16 11:34 IMPRESSION: CHRONIC DEGENERATIVE CHANGES. NO ACUTE FINDINGS. Head CT 03/16/16 11:34 IMPRESSION: 1. No acute intracranial abnormality. No skull fracture. 2. Age-related brain matter volume involution with compensatory ventriculomegaly and CSF space dilatation. Chronic microvascular a disease changes in the supratentorial white matter. Facial Bones CT 03/16/16 11:42 IMPRESSION: No acute facial bone fractures. Abdomen/Pelvis CT 03/19/16 00:00 IMPRESSION: Moderately large bilateral pleural effusions with basilar atelectasis/ air bronchograms. Significantly increased since 03/16/2016. Stable saccular aneurysm. Gallstones. Stable probably old compression fracture of L3. Chest X-Ray 03/19/16 00:00 IMPRESSION: Congestive heart failure and interstitial pulmonary edema. Assessment & Plan - Diagnosis (1) Syncope Qualifiers: Syncope type: unspecified Qualified Code(s): R55 - Syncope and collapse Is this a current diagnosis for this admission?: YesPlan: Likely secondary to underlying sepsis and GI hemorrhage. Patient is currently not hypoxic, but have considered PE as part of this differential. However, in light of patient's active bleeding we will avoid anticoagulation at this time. Patient is been instructed not to get out of bed without assistance. (2) Sepsis Qualifiers: Sepsis type: Escherichia coli Qualified Code(s): A41.51 - Sepsis due to Escherichia coli [E. coli] Is this a current diagnosis for this admission?: YesPlan: Patient grew out Morganella morganii and Escherichia coli. Both are sensitive to Levaquin. Patient on day #4 of treatment. (3) UTI (urinary tract infection) Qualifiers: Urinary tract infection type: acute cystitis Hematuria presence: without hematuria Qualified Code(s): N30.00 - Acute cystitis without hematuria Is this a current diagnosis for this admission?: YesPlan: Patient grew out Morganella morganii and Escherichia coli. Both are sensitive to Levaquin. On day #4 of treatment. (4) GI hemorrhage Qualifiers: GI bleed type/associated pathology: unspecified gastrointestinal hemorrhage type Qualified Code(s): K92.2 - Gastrointestinal hemorrhage, unspecified Is this a current diagnosis for this admission?: YesPlan: Patient found to have 2 ulcers at the gastric outlet and a gastric outlet obstruction from these. This was dilated and biopsied. Patient placed on prevacid 30mg po bid. Advised to avoid NSAIDS, ASA, and plavix at this time. (5) Hyperlipidemia Is this a current diagnosis for this admission?: Yes (6) H/O heart valve replacement with bioprosthetic valve Is this a current diagnosis for this admission?: Yes (7) Facial trauma Qualifiers: Encounter type: initial encounter Qualified Code(s): S09.93XA - Unspecified injury of face, initial encounter Is this a current diagnosis for this admission?: Yes (8) Acute kidney injury Is this a current diagnosis for this admission?: Yes (9) Peripheral artery disease Is this a current diagnosis for this admission?: YesPlan: Patient has significant left lower extremity disease. Patient is also found to have a significant infrarenal AAA. (10) Mass of urinary bladder determined by ultrasound Is this a current diagnosis for this admission?: YesPlan: Appreciate Dr. Prasad of urology. Patient will require outpatient workup. He is normally on Plavix. (11) Acute blood loss anemia Is this a current diagnosis for this admission?: YesPlan: Patient received 2 units of packed red blood cells on 03/17/2016. Hemoglobin remained stable. (12) Gastric ulceration Qualifiers: Gastric ulcer chronicity: acute Gastric ulcer complication status: with hemorrhage Qualified Code(s): K25.0 - Acute gastric ulcer with hemorrhage Is this a current diagnosis for this admission?: Yes (13) Acute on chronic congestive heart failure Qualifiers: Congestive heart failure type: diastolic Qualified Code(s): I50.33 - Acute on chronic diastolic (congestive) heart failure Is this a current diagnosis for this admission?: YesPlan: Likely diastolic failure. Patient with pleural effusions and evidence of volume overload. IV fluids have been stopped Bumex administered. Echocardiogram in the morning (14) Abdominal pain Qualifiers: Abdominal location: left upper quadrant Qualified Code(s): R10.12 - Left upper quadrant pain Is this a current diagnosis for this admission?: YesPlan: Likely secondary to compression fracture of L3. Have written for Lidoderm patch. Has now resolved. - Time Time Spent with patient: 25-34 minutes Anticipated discharge: Home with Homehealth, Acute Rehab
[2016-03-20] MEDS: HYDROCODONE/ACETAMINOPHEN 5-325 MG TABLET PO PRN (21:32)
[2016-03-20] MEDS: TAMSULOSIN HCL 0.4 MG CAP.SR.24H PO SCH (21:33)
[2016-03-21] MEDS: SUCRALFATE SUSP 1 GM/10 ML UDCUP PO SCH (05:35)
[2016-03-21] MEDS: LANSOPRAZOLE 30 MG TAB.RAP.DR PO SCH ×2 (05:35→17:20)
[2016-03-21 06:44] LABS: ABSOLUTE BASOPHILS # (AUTO) 0.1 10^3/uL (0.0-0.2); ABSOLUTE EOSINOPHILS # (AUTO) 0.6 10^3/uL (0.0-0.6); ABSOLUTE LYMPHOCYTES (AUTO) 2.3 10^3/uL (0.5-4.7); ABSOLUTE MONOCYTES (AUTO) 1.7 10^3/uL (0.1-1.4); ABSOLUTE NEUT (AUTO) 7.5 10^3/uL (1.7-8.2); BASOPHILS % (AUTO) 0.5 % (0-2); EOSINOPHILS % (AUTO) 4.9 % (0-6); HEMATOCRIT 35.9 % (37.9-51.0); HEMOGLOBIN 11.7 g/dL (13.5-17.0); HGB HCT DIFFERENCE -0.8; LYMPHOCYTES % (AUTO) 18.7 % (13-45); MEAN CORPUSCULAR HEMOGLOBIN 28.4 pg (27.0-33.4); MEAN CORPUSCULAR HGB CONC 32.5 g/dL (32.0-36.0); MEAN CORPUSCULAR VOLUME 87 fl (80-97); MONOCYTES % (AUTO) 13.9 % (3-13); RED BLOOD COUNT 4.11 10^6/uL (4.35-5.55); RED CELL DISTRIBUTION WIDTH 13.9 % (11.5-14.0); WHITE BLOOD COUNT 12.1 10^3/uL (4.0-10.5)
[2016-03-21 07:02] LABS: ANION GAP 11 (5-19); BLOOD UREA NITROGEN 23 mg/dL (7-20); CALCIUM 8.3 mg/dL (8.4-10.2); CARBON DIOXIDE 25 mmol/L (22-30); CHLORIDE 104 mmol/L (98-107); CREATININE RESULT 1.26 mg/dL (0.52-1.25); GLUCOSE 101 mg/dL (75-110); MAGNESIUM 1.9 mg/dL (1.6-2.3); POTASSIUM 3.6 mmol/L (3.6-5.0); SODIUM 139.6 mmol/L (137-145)
[2016-03-21] MEDS ORDERED: FUROSEMIDE 40 MG TABLET PO SCH ×2 (10:00→18:00)
[2016-03-21] MEDS: LEVOFLOXACIN 500 MG TABLET PO SCH (10:03)
[2016-03-21] MEDS: CYANOCOBALAMIN (VITAMIN B-12) INJ 1000 MCG/1 ML VIAL IM SCH (10:03)
[2016-03-21] MEDS: LEVOTHYROXINE SODIUM 0.025 MG TABLET PO SCH (10:03)
[2016-03-21] MEDS: POTASSIUM CHLORIDE 10 MEQ TABLET.SA PO SCH (10:03)
[2016-03-21] MEDS: LIDOCAINE 5% (700 MG) TRANSDERMAL ADH..PATCH TP SCH (10:03)
--- NOTE | 2016-03-21 13:11 | XCELERA REPORT ---
[address] [address] Transthoracic Echocardiogram Report Name: KEMAL JACKSON JR Age: 89 yrs Gender: Male : 1925 Patient Status: Inpatient Patient Location: [id number]\A Study Date: 03/21/2016 09:47 AM Height: 69 in Weight: 160 lb BSA: 1.9 m2 Procedure: A two-dimensional transthoracic echocardiogram with color flow and Doppler was performed. Study Quality: Technically suboptimal. Reason For Study: chf History: CHF. Ordering Physician: MYKEL AMAYA Performed By: Renae Zarate Interpretation Summary Normal LV size.No LVH.Probably no regional wall motion abnormality, but cannot be sure.The LVEF iis normal and s > than 60%. Doppler measurements suggest impaired left ventricular relaxation, which is associated with grade I/IV or mild diastolic dysfunction No obvious thrombus. RA and RV off axis.Cannot exclude mild RV enlargement and mildly reduced RV systolic function.Proababvly normal RA. The left atrial size is normal. There is no evidence of mitral valve prolapse. There is no mitral valve stenosis. Probably no MR. Aortic sclerosis without stenosis. There is no LVOT obstruction. No aortic regurgitation is present. There is no tricuspid stenosis. There is a mild amount of tricuspid regurgitation There is moderate pulmonary hypertension by echo RVSP is 55 mm of Hg , with RA mean of 10. There is no pericardial effusion. MMode/2D Measurements \T\ Calculations RVDd: 3.4 cm LVIDd: 4.1 cm FS: 33.0 % Ao root diam: 3.3 cm IVSd: 0.93 cm LVIDs: 2.8 cm EDV(Teich): 75.4 ml LVPWd: 0.86 cm ESV(Teich): 28.7 ml Ao root area: 8.4 cm2 EF(Teich): 61.9 % LA dimension: 3.7 cm Doppler Measurements \T\ Calculations MV E max breanna: MV P1/2t max breanna: Ao V2 max: LV V1 max P.6 cm/sec 65.6 cm/sec 122.2 cm/sec 2.7 mmHg MV A max breanna: MV P1/2t: 64.4 msec Ao max PG: LV V1 max: 131.3 cm/sec 6.0 mmHg 82.4 cm/sec MV E/A: 0.50 MVA(P1/2t): 3.4 cm2 MV dec slope: 298.7 cm/sec2 PA V2 max: TR max breanna: 79.5 cm/sec 335.3 cm/sec PA max P.5 mmHgTR max P.0 mmHg Left Ventricle Normal LV size.No LVH.Probably no regional wall motion abnormality, but cannot be sure.The LVEF iis normal and s > than 60%. Doppler measurements suggest impaired left ventricular relaxation, which is associated with grade I/IV or mild diastolic dysfunction. No obvious thrombus. Right Ventricle RA and RV off axis.Cannot exclude mild RV enlargement and mildly reduced RV systolic function.Proababvly normal RA. Atria The left atrial size is normal. Mitral Valve There is mild mitral annular calcification. There is no evidence of mitral valve prolapse. There is no vegetation seen on the mitral valve. There is no mitral valve stenosis. Probably no MR. Aortic Valve There is no aortic valvular vegetation. Aortic sclerosis without stenosis. There is no LVOT obstruction. No aortic regurgitation is present. Tricuspid Valve There is no tricuspid stenosis. There is a mild amount of tricuspid regurgitation. There is moderate pulmonary hypertension by echo. RVSP is 55 mm of Hg , with RA mean of 10. Pulmonic Valve There is no pulmonic valvular stenosis. There is no pulmonic valvular regurgitation. Great Vessels The aortic root is normal size. Effusions There is no pericardial effusion. : MYKEL AMAYA > Karlie Stearns
--- NOTE | 2016-03-21 14:38 | PDOC PROGRESS REPORT ---
Subjective Progress Note for:: 03/21/16 Physical Exam Vital Signs: Temp Pulse Resp BP Pulse Ox 98.8 F 94 20 118/45 L 92 03/21/16 12:00 03/21/16 14:00 03/21/16 12:00 03/21/16 12:00 03/21/16 12:00 Intake & Output 03/20/16 03/21/16 03/22/16 06:59 06:59 06:59 Intake Total 1330 1412 598 Output Total 4700 1725 100 Balance -3370 -313 498 Weight 72.8 kg 68 kg Results Laboratory Results: 03/21/16 05:52 03/21/16 05:52 03/21/16 03/21/16 05:52 05:52 WBC 12.1 H RBC 4.11 L Hgb 11.7 L Hct 35.9 L MCV 87 MCH 28.4 MCHC 32.5 RDW 13.9 Plt Count 172 Seg Neutrophils % 62.0 Lymphocytes % 18.7 Monocytes % 13.9 H Eosinophils % 4.9 Basophils % 0.5 Absolute Neutrophils 7.5 Absolute Lymphocytes 2.3 Absolute Monocytes 1.7 H Absolute Eosinophils 0.6 Absolute Basophils 0.1 Sodium 139.6 Potassium 3.6 Chloride 104 Carbon Dioxide 25 Anion Gap 11 BUN 23 H Creatinine 1.26 H Est GFR ( Amer) > 60 Est GFR (Non-Af Amer) 54 L Glucose 101 Calcium 8.3 L Magnesium 1.9 03/16/16 03/16/16 03/17/16 16:55 20:04 02:23 Troponin I 0.021 0.026 0.028 Impressions: Limited or Localized CT 03/16/16 00:00 IMPRESSION: Infrarenal abdominal aortic aneurysm as noted above measuring 4.1 x 5.3 cm in diameters. Small gallstones. Other findings as noted above Renal Ultrasound 03/16/16 00:00 IMPRESSION: There is hyperechoic irregular thickening of the right bladder wall which shows internal color Doppler flow, this area measures 2.9 x 2.3 x 0.8 cm, concerning for infiltrating lesion. No hydronephrosis. Cervical Spine CT 03/16/16 11:34 IMPRESSION: CHRONIC DEGENERATIVE CHANGES. NO ACUTE FINDINGS. Head CT 03/16/16 11:34 IMPRESSION: 1. No acute intracranial abnormality. No skull fracture. 2. Age-related brain matter volume involution with compensatory ventriculomegaly and CSF space dilatation. Chronic microvascular a disease changes in the supratentorial white matter. Facial Bones CT 03/16/16 11:42 IMPRESSION: No acute facial bone fractures. Abdomen/Pelvis CT 03/19/16 00:00 IMPRESSION: Moderately large bilateral pleural effusions with basilar atelectasis/ air bronchograms. Significantly increased since 03/16/2016. Stable saccular aneurysm. Gallstones. Stable probably old compression fracture of L3. Chest X-Ray 03/21/16 06:00 IMPRESSION: CHF. No significant change. Assessment & Plan - Diagnosis (1) Acute on chronic congestive heart failure Qualifiers: Congestive heart failure type: diastolic Qualified Code(s): I50.33 - Acute on chronic diastolic (congestive) heart failure Is this a current diagnosis for this admission?: YesPlan: Patient has EF greater than 60% and grade I/IV diastolic dysfunction. Patient transitioned to oral Lasix today. Currently, unable to tolerate Juanjo/ARB secondary to chronic kidney disease. Initiated patient on metoprolol. Continue to monitor I&O and daily weight. (2) Syncope Qualifiers: Syncope type: unspecified Qualified Code(s): R55 - Syncope and collapse Is this a current diagnosis for this admission?: YesPlan: Likely secondary to underlying sepsis and GI hemorrhage. Patient is currently not hypoxic, but have considered PE as part of this differential. However, in light of patient's active bleeding we will avoid anticoagulation at this time. Patient is been instructed not to get out of bed without assistance. (3) Sepsis Qualifiers: Sepsis type: Escherichia coli Qualified Code(s): A41.51 - Sepsis due to Escherichia coli [E. coli] Is this a current diagnosis for this admission?: YesPlan: Patient grew out Morganella morganii and Escherichia coli. Both are sensitive to Levaquin. Patient on day #5 of treatment. (4) UTI (urinary tract infection) Qualifiers: Urinary tract infection type: acute cystitis Hematuria presence: without hematuria Qualified Code(s): N30.00 - Acute cystitis without hematuria Is this a current diagnosis for this admission?: YesPlan: Patient grew out Morganella morganii and Escherichia coli. Both are sensitive to Levaquin. On day #5 of treatment. (5) GI hemorrhage Qualifiers: GI bleed type/associated pathology: unspecified gastrointestinal hemorrhage type Qualified Code(s): K92.2 - Gastrointestinal hemorrhage, unspecified Is this a current diagnosis for this admission?: YesPlan: Patient found to have 2 ulcers at the gastric outlet and a gastric outlet obstruction from these. This was dilated and ulcers biopsied. Patient placed on prevacid 30mg po bid. Advised to avoid NSAIDS, ASA, and plavix at this time. (6) Hyperlipidemia Is this a current diagnosis for this admission?: YesPlan: Resume Vytorin (7) H/O heart valve replacement with bioprosthetic valve Is this a current diagnosis for this admission?: Yes (8) Peripheral artery disease Is this a current diagnosis for this admission?: Yes (9) Mass of urinary bladder determined by ultrasound Is this a current diagnosis for this admission?: YesPlan: Appreciate Dr. Prasad of urology. Patient will require outpatient workup. (10) Acute blood loss anemia Is this a current diagnosis for this admission?: YesPlan: Patient received 2 units of packed red blood cells on 03/17/2016. Hemoglobin remained stable. Continue to monitor H&H. (11) Gastric ulceration Qualifiers: Gastric ulcer chronicity: acute Gastric ulcer complication status: with hemorrhage Qualified Code(s): K25.0 - Acute gastric ulcer with hemorrhage Is this a current diagnosis for this admission?: Yes (12) Moderate to severe pulmonary hypertension Is this a current diagnosis for this admission?: Yes (13) CKD (chronic kidney disease), stage IV Is this a current diagnosis for this admission?: YesPlan: Attempts to improve patient's renal function resulted in volume overload leading me to believe this is likely chronic kidney disease. Stage 3-4. Really just all medications. (14) Facial trauma Qualifiers: Encounter type: initial encounter Qualified Code(s): S09.93XA - Unspecified injury of face, initial encounter Is this a current diagnosis for this admission?: Yes (15) Hypothyroidism Qualifiers: Hypothyroidism type: unspecified Qualified Code(s): E03.9 - Hypothyroidism, unspecified Is this a current diagnosis for this admission?: YesPlan: This is a new diagnosis for this patient. TSH was 7.85 and free T4 of 1.04 and free T3 of 2.48. On Synthroid 25 g by mouth daily. (16) Do not resuscitate Is this a current diagnosis for this admission?: YesPlan: Patient is a DO NOT RESUSCITATE and his niece Keri is his surrogate decision maker - Time Time Spent with patient: 35 or more minutes Medications reviewed and adjusted accordingly: Yes Anticipated discharge: Home with Homehealth, Acute Rehab
[2016-03-21] MEDS: TAMSULOSIN HCL 0.4 MG CAP.SR.24H PO SCH (21:45)
[2016-03-22] MEDS: LANSOPRAZOLE 30 MG TAB.RAP.DR PO SCH ×2 (06:08→17:53)
[2016-03-22 06:42] LABS: ANION GAP 13 (5-19); BLOOD UREA NITROGEN 25 mg/dL (7-20); CALCIUM 8.6 mg/dL (8.4-10.2); CARBON DIOXIDE 27 mmol/L (22-30); CHLORIDE 100 mmol/L (98-107); CREATININE RESULT 1.46 mg/dL (0.52-1.25); GLUCOSE 106 mg/dL (75-110); MAGNESIUM 1.7 mg/dL (1.6-2.3); POTASSIUM 3.3 mmol/L (3.6-5.0); SODIUM 139.6 mmol/L (137-145)
[2016-03-22] MEDS: METOPROLOL SUCCINATE 25 MG TAB.SR.24H PO SCH (10:23)
[2016-03-22] MEDS: POTASSIUM CHLORIDE 10 MEQ TABLET.SA PO SCH (10:23)
[2016-03-22] MEDS: LEVOTHYROXINE SODIUM 0.025 MG TABLET PO SCH (10:23)
[2016-03-22] MEDS: LEVOFLOXACIN 500 MG TABLET PO SCH (10:23)
[2016-03-22] MEDS: CYANOCOBALAMIN (VITAMIN B-12) INJ 1000 MCG/1 ML VIAL IM SCH (10:24)
[2016-03-22] MEDS: LIDOCAINE 5% (700 MG) TRANSDERMAL ADH..PATCH TP SCH (10:24)
[2016-03-22] MEDS ORDERED: FUROSEMIDE 40 MG TABLET PO ONE (11:30)
--- NOTE | 2016-03-22 15:32 | PDOC PROGRESS REPORT ---
Subjective Progress Note for:: 03/22/16 Subjective:: Patient would like to know when he can be discharged home. It is the recommendation of physical therapy and nursing staff that patient go to acute rehabilitation prior to returning home alone. Patient denies fever, chills, headache, new focal weakness, chest pain, shortness of breath, abdominal pain, nausea, vomiting, diarrhea, constipation. Physical Exam Vital Signs: Temp Pulse Resp BP Pulse Ox 98.3 F 84 20 100/52 L 92 03/22/16 11:30 03/22/16 14:00 03/22/16 11:30 03/22/16 11:30 03/22/16 11:30 Intake & Output 03/21/16 03/22/16 03/23/16 06:59 06:59 06:59 Intake Total 1412 1446 Output Total 1725 2200 200 Balance -313 -754 -200 Weight 68 kg 66.2 kg GENERAL: No acute distress, frail, elderly HEENT: Conjunctiva clear, nonicteric, moist mucous membranes, no JVD, midline trachea RESPIRATORY: Clear to auscultation bilaterally, no wheezes, no rhonchi CARDIAC: Regular rate and rhythm, no murmurs/gallops/rubs ABDOMEN: Soft, nondistended, nontender, positive bowel sounds, no rebound, no guarding EXTREMETIES: No edema, cyanosis, clubbing NEUROLOGIC: Alert, oriented to person/place/time, CN's grossly intact, no focal deficits SKIN: No rash, wounds PSYCH: Normal mood, normal affect Results Laboratory Results: 03/21/16 05:52 03/22/16 05:43 03/22/16 05:43 Sodium 139.6 Potassium 3.3 L Chloride 100 Carbon Dioxide 27 Anion Gap 13 BUN 25 H Creatinine 1.46 H Est GFR ( Amer) 55 L Est GFR (Non-Af Amer) 46 L Glucose 106 Calcium 8.6 Magnesium 1.7 03/16/16 16:50 Blood Blood Culture - Final NO GROWTH IN 5 DAYS 03/16/16 03/16/16 03/17/16 16:55 20:04 02:23 Troponin I 0.021 0.026 0.028 Impressions: Limited or Localized CT 03/16/16 00:00 IMPRESSION: Infrarenal abdominal aortic aneurysm as noted above measuring 4.1 x 5.3 cm in diameters. Small gallstones. Other findings as noted above Renal Ultrasound 03/16/16 00:00 IMPRESSION: There is hyperechoic irregular thickening of the right bladder wall which shows internal color Doppler flow, this area measures 2.9 x 2.3 x 0.8 cm, concerning for infiltrating lesion. No hydronephrosis. Cervical Spine CT 03/16/16 11:34 IMPRESSION: CHRONIC DEGENERATIVE CHANGES. NO ACUTE FINDINGS. Head CT 03/16/16 11:34 IMPRESSION: 1. No acute intracranial abnormality. No skull fracture. 2. Age-related brain matter volume involution with compensatory ventriculomegaly and CSF space dilatation. Chronic microvascular a disease changes in the supratentorial white matter. Facial Bones CT 03/16/16 11:42 IMPRESSION: No acute facial bone fractures. Abdomen/Pelvis CT 03/19/16 00:00 IMPRESSION: Moderately large bilateral pleural effusions with basilar atelectasis/ air bronchograms. Significantly increased since 03/16/2016. Stable saccular aneurysm. Gallstones. Stable probably old compression fracture of L3. Chest X-Ray 03/21/16 06:00 IMPRESSION: CHF. No significant change. Assessment & Plan - Diagnosis (1) Syncope Qualifiers: Syncope type: unspecified Qualified Code(s): R55 - Syncope and collapse Is this a current diagnosis for this admission?: YesPlan: This is likely secondary to symptomatic anemia. Patient is now asymptomatic from this standpoint. (2) Acute blood loss anemia Is this a current diagnosis for this admission?: YesPlan: Patient has been transfused 2 units PRBC on 03/17/2016. Hemoglobin has been stable posttransfusion. (3) GI hemorrhage Qualifiers: GI bleed type/associated pathology: unspecified gastrointestinal hemorrhage type Qualified Code(s): K92.2 - Gastrointestinal hemorrhage, unspecified Is this a current diagnosis for this admission?: YesPlan: Secondary to gastric ulcers. No active bleeding apparent at this time. (4) Gastric ulceration Qualifiers: Gastric ulcer chronicity: acute Gastric ulcer complication status: with hemorrhage Qualified Code(s): K25.0 - Acute gastric ulcer with hemorrhage Is this a current diagnosis for this admission?: YesPlan: Continue Prevacid. Noted on EGD by Dr. Ho. Follow-up with Dr. Ho as an outpatient. (5) Acute on chronic congestive heart failure Qualifiers: Congestive heart failure type: diastolic Qualified Code(s): I50.33 - Acute on chronic diastolic (congestive) heart failure Is this a current diagnosis for this admission?: YesPlan: Liang showed EF 60% grade 1/4 diastolic dysfunction. Continue Lasix. Patient not placed on REG inhibitor or ARB secondary to ejection fraction greater than 60% and chronic kidney disease. Patient was started on Toprol-XL this admission. He is clinically stable at this time from the standpoint. (6) CKD (chronic kidney disease), stage IV Is this a current diagnosis for this admission?: YesPlan: Kidney function around baseline. (7) H/O heart valve replacement with bioprosthetic valve Is this a current diagnosis for this admission?: Yes (8) Hyperlipidemia Is this a current diagnosis for this admission?: Yes (9) Hypothyroidism Qualifiers: Hypothyroidism type: unspecified Qualified Code(s): E03.9 - Hypothyroidism, unspecified Is this a current diagnosis for this admission?: YesPlan: Patient was started on Synthroid 25 g daily. He will need follow-up TSH in 3- 4 weeks. (10) Mass of urinary bladder determined by ultrasound Is this a current diagnosis for this admission?: Yes (11) Moderate to severe pulmonary hypertension Is this a current diagnosis for this admission?: Yes (12) UTI (urinary tract infection) Qualifiers: Urinary tract infection type: acute cystitis Hematuria presence: without hematuria Qualified Code(s): N30.00 - Acute cystitis without hematuria Is this a current diagnosis for this admission?: YesPlan: Continue Levaquin until 03/26/2016 (13) Ambulatory dysfunction Is this a current diagnosis for this admission?: YesPlan: Will recommend patient go to acute rehabilitation based on physical therapy evaluation. (14) Do not resuscitate Is this a current diagnosis for this admission?: Yes - Time Time Spent with patient: 35 or more minutes Anticipated discharge: Acute Rehab Within: when bed available
[2016-03-22] MEDS: TAMSULOSIN HCL 0.4 MG CAP.SR.24H PO SCH (22:10)
[2016-03-23] MEDS: LANSOPRAZOLE 30 MG TAB.RAP.DR PO SCH ×2 (05:49→17:35)
[2016-03-23 05:51] LABS: ABSOLUTE BASOPHILS # (AUTO) 0.1 10^3/uL (0.0-0.2); ABSOLUTE EOSINOPHILS # (AUTO) 0.3 10^3/uL (0.0-0.6); ABSOLUTE MONOCYTES (AUTO) 1.4 10^3/uL (0.1-1.4); ABSOLUTE NEUT (AUTO) 8.5 10^3/uL (1.7-8.2); BASOPHILS % (AUTO) 0.5 % (0-2); EOSINOPHILS % (AUTO) 2.7 % (0-6); HEMOGLOBIN 12.6 g/dL (13.5-17.0); HGB HCT DIFFERENCE -0.2; LYMPHOCYTES % (AUTO) 16.2 % (13-45); MEAN CORPUSCULAR HEMOGLOBIN 28.9 pg (27.0-33.4); MEAN CORPUSCULAR HGB CONC 33.1 g/dL (32.0-36.0); MEAN CORPUSCULAR VOLUME 88 fl (80-97); MONOCYTES % (AUTO) 11.2 % (3-13); RED BLOOD COUNT 4.35 10^6/uL (4.35-5.55); RED CELL DISTRIBUTION WIDTH 14.4 % (11.5-14.0); SEGMENTED NEUTROPHILS % (AUTO) 69.4 % (42-78); WHITE BLOOD COUNT 12.3 10^3/uL (4.0-10.5)
[2016-03-23 06:11] LABS: ANION GAP 12 (5-19); BLOOD UREA NITROGEN 28 mg/dL (7-20); CALCIUM 8.5 mg/dL (8.4-10.2); CARBON DIOXIDE 27 mmol/L (22-30); CHLORIDE 102 mmol/L (98-107); CREATININE RESULT 1.45 mg/dL (0.52-1.25); GLUCOSE 101 mg/dL (75-110); POTASSIUM 3.6 mmol/L (3.6-5.0); SODIUM 140.8 mmol/L (137-145)
[2016-03-23] MEDS: CYANOCOBALAMIN (VITAMIN B-12) INJ 1000 MCG/1 ML VIAL IM SCH (09:39)
[2016-03-23] MEDS: LEVOFLOXACIN 500 MG TABLET PO SCH (09:58)
[2016-03-23] MEDS: POTASSIUM CHLORIDE 10 MEQ TABLET.SA PO SCH (09:58)
[2016-03-23] MEDS: METOPROLOL SUCCINATE 25 MG TAB.SR.24H PO SCH (09:58)
[2016-03-23] MEDS: LIDOCAINE 5% (700 MG) TRANSDERMAL ADH..PATCH TP SCH (09:59)
[2016-03-23] MEDS: LEVOTHYROXINE SODIUM 0.025 MG TABLET PO SCH (09:59)
[2016-03-23] MEDS: FUROSEMIDE 40 MG TABLET PO SCH (09:59)
[2016-03-23] MEDS ORDERED: ALBUTEROL SULFATE 0.083% NEB 2.5 MG/3 ML AMPUL NEB PRN (12:14)
[2016-03-23 12:34] LABS: APPEARANCE,URINE CLEAR; BILIRUBIN,URINE NEGATIVE (NEGATIVE); GLUCOSE, URINE NEGATIVE (NEGATIVE); KETONES,URINE NEGATIVE (NEGATIVE); LEUKOCYTE ESTERASE,URINE NEGATIVE (NEGATIVE); NITRITE,URINE NEGATIVE (NEGATIVE); PROTEIN,URINE NEGATIVE (NEGATIVE); URINE SPECIFIC GRAVITY 1.014; UROBILINOGEN,URINE NEGATIVE mg/dL (<2.0)
--- NOTE | 2016-03-23 13:31 | PDOC PROGRESS REPORT ---
Subjective Progress Note for:: 03/23/16 Subjective:: Patient has no complaints. He still feels strongly about being discharged home despite recommendations from therapy to go to rehabilitation first. Patient denies fever, chills, headache, new focal weakness, chest pain, shortness of breath, abdominal pain, nausea, vomiting, diarrhea, constipation. Physical Exam Vital Signs: Temp Pulse Resp BP Pulse Ox 98.4 F 69 16 112/60 92 03/23/16 11:27 03/23/16 12:25 03/23/16 12:25 03/23/16 11:27 03/23/16 12:25 Intake & Output 03/22/16 03/23/16 03/24/16 06:59 06:59 06:59 Intake Total 1446 813 Output Total 2200 995 Balance -754 -182 Weight 66.2 kg 66.4 kg GENERAL: No acute distress, frail, elderly HEENT: Conjunctiva clear, nonicteric, moist mucous membranes, no JVD, midline trachea RESPIRATORY: Clear to auscultation bilaterally, no wheezes, no rhonchi CARDIAC: Regular rate and rhythm, no murmurs/gallops/rubs ABDOMEN: Soft, nondistended, nontender, positive bowel sounds, no rebound, no guarding EXTREMETIES: No edema, no calf tenderness NEUROLOGIC: Alert, oriented to person/place/time, CN's grossly intact, no focal deficits SKIN: Sutures intact over right elbow with no signs of infection PSYCH: Normal mood, normal affect Results Laboratory Results: 03/23/16 05:12 03/23/16 05:12 03/23/16 03/23/16 03/23/16 05:12 05:12 12:15 WBC 12.3 H RBC 4.35 Hgb 12.6 L Hct 38.0 MCV 88 MCH 28.9 MCHC 33.1 RDW 14.4 H Plt Count 231 Seg Neutrophils % 69.4 Lymphocytes % 16.2 Monocytes % 11.2 Eosinophils % 2.7 Basophils % 0.5 Absolute Neutrophils 8.5 H Absolute Lymphocytes 2.0 Absolute Monocytes 1.4 Absolute Eosinophils 0.3 Absolute Basophils 0.1 Sodium 140.8 Potassium 3.6 Chloride 102 Carbon Dioxide 27 Anion Gap 12 BUN 28 H Creatinine 1.45 H Est GFR ( Amer) 56 L Est GFR (Non-Af Amer) 46 L Glucose 101 Calcium 8.5 Urine Color YELLOW Urine Appearance CLEAR Urine pH 5.0 Ur Specific [place] 1.014 Urine Protein NEGATIVE Urine Glucose (UA) NEGATIVE Urine Ketones NEGATIVE Urine Blood NEGATIVE Urine Nitrite NEGATIVE Ur Leukocyte Esterase NEGATIVE Urine WBC (Auto) 2 Urine RBC (Auto) 0 03/16/16 03/16/16 03/17/16 16:55 20:04 02:23 Troponin I 0.021 0.026 0.028 Impressions: Limited or Localized CT 03/16/16 00:00 IMPRESSION: Infrarenal abdominal aortic aneurysm as noted above measuring 4.1 x 5.3 cm in diameters. Small gallstones. Other findings as noted above Renal Ultrasound 03/16/16 00:00 IMPRESSION: There is hyperechoic irregular thickening of the right bladder wall which shows internal color Doppler flow, this area measures 2.9 x 2.3 x 0.8 cm, concerning for infiltrating lesion. No hydronephrosis. Cervical Spine CT 03/16/16 11:34 IMPRESSION: CHRONIC DEGENERATIVE CHANGES. NO ACUTE FINDINGS. Head CT 03/16/16 11:34 IMPRESSION: 1. No acute intracranial abnormality. No skull fracture. 2. Age-related brain matter volume involution with compensatory ventriculomegaly and CSF space dilatation. Chronic microvascular a disease changes in the supratentorial white matter. Facial Bones CT 03/16/16 11:42 IMPRESSION: No acute facial bone fractures. Abdomen/Pelvis CT 03/19/16 00:00 IMPRESSION: Moderately large bilateral pleural effusions with basilar atelectasis/ air bronchograms. Significantly increased since 03/16/2016. Stable saccular aneurysm. Gallstones. Stable probably old compression fracture of L3. Chest X-Ray 03/23/16 12:09 IMPRESSION: Interval improvement in the previously described diffuse interstitial pattern as noted above. No acute consolidations or pleural effusions are identified. Other findings as noted above Assessment & Plan - Diagnosis (1) Acute hypoxemic respiratory failure Is this a current diagnosis for this admission?: YesPlan: Likely secondary to pulmonary edema. Wean off oxygen supplementation as tolerated. Patient does not require home oxygen at baseline. (2) Syncope Qualifiers: Syncope type: unspecified Qualified Code(s): R55 - Syncope and collapse Is this a current diagnosis for this admission?: YesPlan: This is likely secondary to symptomatic anemia. Patient is now asymptomatic from this standpoint. (3) Acute blood loss anemia Is this a current diagnosis for this admission?: YesPlan: Patient has been transfused 2 units PRBC on 03/17/2016. Hemoglobin has been stable posttransfusion. (4) GI hemorrhage Qualifiers: GI bleed type/associated pathology: unspecified gastrointestinal hemorrhage type Qualified Code(s): K92.2 - Gastrointestinal hemorrhage, unspecified Is this a current diagnosis for this admission?: YesPlan: Secondary to gastric ulcers. No active bleeding apparent at this time. (5) Gastric ulceration Qualifiers: Gastric ulcer chronicity: acute Gastric ulcer complication status: with hemorrhage Qualified Code(s): K25.0 - Acute gastric ulcer with hemorrhage Is this a current diagnosis for this admission?: YesPlan: Continue Prevacid. Noted on EGD by Dr. Ho. Follow-up with Dr. Ho as an outpatient. Helicobacter pylori negative. (6) Acute on chronic congestive heart failure Qualifiers: Congestive heart failure type: diastolic Qualified Code(s): I50.33 - Acute on chronic diastolic (congestive) heart failure Is this a current diagnosis for this admission?: YesPlan: Echocardiogram showed EF 60% grade 1/4 diastolic dysfunction. Continue Lasix. Patient not placed on REG inhibitor or ARB secondary to ejection fraction greater than 60% and chronic kidney disease. Patient was started on Toprol-XL this admission. He is clinically stable at this time from the standpoint. (7) CKD (chronic kidney disease), stage IV Is this a current diagnosis for this admission?: YesPlan: Kidney function around baseline. (8) H/O heart valve replacement with bioprosthetic valve Is this a current diagnosis for this admission?: Yes (9) Hyperlipidemia Is this a current diagnosis for this admission?: Yes (10) Hypothyroidism Qualifiers: Hypothyroidism type: unspecified Qualified Code(s): E03.9 - Hypothyroidism, unspecified Is this a current diagnosis for this admission?: YesPlan: Patient was started on Synthroid 25 g daily. He will need follow-up TSH in 3- 4 weeks. (11) Mass of urinary bladder determined by ultrasound Is this a current diagnosis for this admission?: YesPlan: Patient will need outpatient urology follow-up. (12) Moderate to severe pulmonary hypertension Is this a current diagnosis for this admission?: Yes (13) UTI (urinary tract infection) Qualifiers: Urinary tract infection type: acute cystitis Hematuria presence: without hematuria Qualified Code(s): N30.00 - Acute cystitis without hematuria Is this a current diagnosis for this admission?: YesPlan: Continue Levaquin until 03/26/2016 based on urine culture growing Escherichia coli and Morganella. (14) Ambulatory dysfunction Is this a current diagnosis for this admission?: YesPlan: Physical therapy recommending acute rehabilitation however patient declines. We will arrange discharge home with home health/home physical therapy services once he is medically stable. (15) Leukocytosis Is this a current diagnosis for this admission?: YesPlan: Patient has persistent low-grade leukocytosis. He is afebrile. Follow-up chest x-ray shows improvement of airspace disease. Follow-up Urinalysis is negative. Continue current antibiotic of Levaquin for urinary tract infection. (16) Do not resuscitate Is this a current diagnosis for this admission?: Yes (17) Laceration of right elbow Qualifiers: Encounter type: subsequent encounter Qualified Code(s): S51.011D - Laceration without foreign body of right elbow, subsequent encounter Is this a current diagnosis for this admission?: YesPlan: Patient will need suture removal on 03/28/2016. - Time Time Spent with patient: 35 or more minutes
[2016-03-23] MEDS: TAMSULOSIN HCL 0.4 MG CAP.SR.24H PO SCH (21:25)
[2016-03-24] MEDS: LANSOPRAZOLE 30 MG TAB.RAP.DR PO SCH ×2 (05:29→17:24)
[2016-03-24 05:59] LABS: ABSOLUTE BASOPHILS # (AUTO) 0.1 10^3/uL (0.0-0.2); ABSOLUTE EOSINOPHILS # (AUTO) 0.2 10^3/uL (0.0-0.6); ABSOLUTE LYMPHOCYTES (AUTO) 1.6 10^3/uL (0.5-4.7); ABSOLUTE MONOCYTES (AUTO) 1.4 10^3/uL (0.1-1.4); ABSOLUTE NEUT (AUTO) 8.2 10^3/uL (1.7-8.2); BASOPHILS % (AUTO) 0.7 % (0-2); EOSINOPHILS % (AUTO) 2.2 % (0-6); HEMATOCRIT 36.2 % (37.9-51.0); HGB HCT DIFFERENCE -0.2; LYMPHOCYTES % (AUTO) 13.8 % (13-45); MEAN CORPUSCULAR HGB CONC 33.2 g/dL (32.0-36.0); MEAN CORPUSCULAR VOLUME 87 fl (80-97); MONOCYTES % (AUTO) 12.3 % (3-13); RED BLOOD COUNT 4.15 10^6/uL (4.35-5.55); WHITE BLOOD COUNT 11.5 10^3/uL (4.0-10.5)
[2016-03-24 06:21] LABS: ANION GAP 10 (5-19); BLOOD UREA NITROGEN 28 mg/dL (7-20); CALCIUM 8.4 mg/dL (8.4-10.2); CARBON DIOXIDE 27 mmol/L (22-30); CHLORIDE 101 mmol/L (98-107); CREATININE RESULT 1.54 mg/dL (0.52-1.25); GLUCOSE 102 mg/dL (75-110); POTASSIUM 4.4 mmol/L (3.6-5.0); SODIUM 138.4 mmol/L (137-145)
[2016-03-24] MEDS: POTASSIUM CHLORIDE 10 MEQ TABLET.SA PO SCH (09:32)
[2016-03-24] MEDS: LEVOFLOXACIN 500 MG TABLET PO SCH (09:33)
[2016-03-24] MEDS: DOCUSATE SODIUM 100 MG CAPSULE PO SCH ×2 (09:33→17:23)
[2016-03-24] MEDS: METOPROLOL SUCCINATE 25 MG TAB.SR.24H PO SCH (09:34)
[2016-03-24] MEDS: LEVOTHYROXINE SODIUM 0.025 MG TABLET PO SCH (09:34)
[2016-03-24] MEDS: FUROSEMIDE 40 MG TABLET PO SCH (09:35)
[2016-03-24] MEDS ORDERED: BISACODYL 5 MG TABEC PO SCH (10:00)
[2016-03-24] MEDS ORDERED: POTASSIUM CHLORIDE 10 MEQ TABLET.SA PO SCH (10:23)
[2016-03-24] MEDS ORDERED: NORMAL SALINE 1000 ML 1,000 ML IV PRN (10:24)
[2016-03-24] MEDS: CYANOCOBALAMIN (VITAMIN B-12) INJ 1000 MCG/1 ML VIAL IM SCH (10:58)
--- NOTE | 2016-03-24 17:13 | PDOC PROGRESS REPORT ---
Subjective Progress Note for:: 03/24/16 Subjective:: Patient has no complaints. Patient has had low-grade temperatures and low blood pressure over the past 24 hours. Patient denies fever, chills, headache, new focal weakness, chest pain, shortness of breath, abdominal pain, nausea, vomiting, diarrhea, constipation. Physical Exam Vital Signs: Temp Pulse Resp BP Pulse Ox 98.2 F 81 22 H 116/52 L 96 03/24/16 15:11 03/24/16 15:11 03/24/16 15:11 03/24/16 15:11 03/24/16 15:11 Intake & Output 03/23/16 03/24/16 03/25/16 06:59 06:59 06:59 Intake Total 813 615 Output Total 995 1100 Balance -182 -485 Weight 66.4 kg 65.9 kg GENERAL: No acute distress, frail, elderly HEENT: Conjunctiva clear, nonicteric, moist mucous membranes, no JVD, midline trachea RESPIRATORY: Clear to auscultation bilaterally, no wheezes, no rhonchi CARDIAC: Regular rate and rhythm, no murmurs/gallops/rubs ABDOMEN: Soft, nondistended, nontender, positive bowel sounds, no rebound, no guarding EXTREMETIES: No edema, no calf tenderness NEUROLOGIC: Alert, oriented to person/place/time, CN's grossly intact, no focal deficits SKIN: Sutures intact over right elbow with no signs of infection PSYCH: Normal mood, normal affect Results Laboratory Results: 03/24/16 05:10 03/24/16 05:10 03/24/16 03/24/16 05:10 05:10 WBC 11.5 H RBC 4.15 L Hgb 12.0 L Hct 36.2 L MCV 87 MCH 29.0 MCHC 33.2 RDW 14.0 Plt Count 227 Seg Neutrophils % 71.0 Lymphocytes % 13.8 Monocytes % 12.3 Eosinophils % 2.2 Basophils % 0.7 Absolute Neutrophils 8.2 Absolute Lymphocytes 1.6 Absolute Monocytes 1.4 Absolute Eosinophils 0.2 Absolute Basophils 0.1 Sodium 138.4 Potassium 4.4 Chloride 101 Carbon Dioxide 27 Anion Gap 10 BUN 28 H Creatinine 1.54 H Est GFR ( Amer) 52 L Est GFR (Non-Af Amer) 43 L Glucose 102 Calcium 8.4 01/03/16/16 03/17/16 16:55 20:04 02:23 Troponin I 0.021 0.026 0.028 Impressions: Limited or Localized CT 03/16/16 00:00 IMPRESSION: Infrarenal abdominal aortic aneurysm as noted above measuring 4.1 x 5.3 cm in diameters. Small gallstones. Other findings as noted above Renal Ultrasound 03/16/16 00:00 IMPRESSION: There is hyperechoic irregular thickening of the right bladder wall which shows internal color Doppler flow, this area measures 2.9 x 2.3 x 0.8 cm, concerning for infiltrating lesion. No hydronephrosis. Cervical Spine CT 03/16/16 11:34 IMPRESSION: CHRONIC DEGENERATIVE CHANGES. NO ACUTE FINDINGS. Head CT 03/16/16 11:34 IMPRESSION: 1. No acute intracranial abnormality. No skull fracture. 2. Age-related brain matter volume involution with compensatory ventriculomegaly and CSF space dilatation. Chronic microvascular a disease changes in the supratentorial white matter. Facial Bones CT 03/16/16 11:42 IMPRESSION: No acute facial bone fractures. Abdomen/Pelvis CT 03/19/16 00:00 IMPRESSION: Moderately large bilateral pleural effusions with basilar atelectasis/ air bronchograms. Significantly increased since 03/16/2016. Stable saccular aneurysm. Gallstones. Stable probably old compression fracture of L3. Chest X-Ray 03/23/16 12:09 IMPRESSION: Interval improvement in the previously described diffuse interstitial pattern as noted above. No acute consolidations or pleural effusions are identified. Other findings as noted above Assessment & Plan - Diagnosis (1) Acute hypoxemic respiratory failure Is this a current diagnosis for this admission?: YesPlan: Likely secondary to pulmonary edema. Wean off oxygen supplementation as tolerated. Patient does not require home oxygen at baseline. (2) Syncope Qualifiers: Syncope type: unspecified Qualified Code(s): R55 - Syncope and collapse Is this a current diagnosis for this admission?: YesPlan: This is likely secondary to symptomatic anemia. Patient is now asymptomatic from this standpoint. (3) Acute blood loss anemia Is this a current diagnosis for this admission?: YesPlan: Patient has been transfused 2 units PRBC on 03/17/2016. Hemoglobin has been stable posttransfusion. (4) GI hemorrhage Qualifiers: GI bleed type/associated pathology: unspecified gastrointestinal hemorrhage type Qualified Code(s): K92.2 - Gastrointestinal hemorrhage, unspecified Is this a current diagnosis for this admission?: YesPlan: Secondary to gastric ulcers. No active bleeding apparent at this time. (5) Gastric ulceration Qualifiers: Gastric ulcer chronicity: acute Gastric ulcer complication status: with hemorrhage Qualified Code(s): K25.0 - Acute gastric ulcer with hemorrhage Is this a current diagnosis for this admission?: YesPlan: Continue Prevacid. Noted on EGD by Dr. Ho. Follow-up with Dr. Ho as an outpatient. Helicobacter pylori negative. (6) Acute on chronic congestive heart failure Qualifiers: Congestive heart failure type: diastolic Qualified Code(s): I50.33 - Acute on chronic diastolic (congestive) heart failure Is this a current diagnosis for this admission?: YesPlan: Echocardiogram showed EF 60% grade 1/4 diastolic dysfunction. Continue Lasix. Patient not placed on REG inhibitor or ARB secondary to ejection fraction greater than 60% and chronic kidney disease. Patient was started on Toprol-XL this admission. He is clinically stable at this time from the standpoint. (7) CKD (chronic kidney disease), stage IV Is this a current diagnosis for this admission?: YesPlan: Kidney function around baseline. (8) H/O heart valve replacement with bioprosthetic valve Is this a current diagnosis for this admission?: Yes (9) Hyperlipidemia Is this a current diagnosis for this admission?: Yes (10) Hypothyroidism Qualifiers: Hypothyroidism type: unspecified Qualified Code(s): E03.9 - Hypothyroidism, unspecified Is this a current diagnosis for this admission?: YesPlan: Patient was started on Synthroid 25 g daily. He will need follow-up TSH in 3- 4 weeks. (11) Mass of urinary bladder determined by ultrasound Is this a current diagnosis for this admission?: YesPlan: Patient will need outpatient urology follow-up. (12) Moderate to severe pulmonary hypertension Is this a current diagnosis for this admission?: YesPlan: Patient may benefit from continuous home oxygen based on severe pulmonary hypertension. (13) UTI (urinary tract infection) Qualifiers: Urinary tract infection type: acute cystitis Hematuria presence: without hematuria Qualified Code(s): N30.00 - Acute cystitis without hematuria Is this a current diagnosis for this admission?: Yes (14) Ambulatory dysfunction Is this a current diagnosis for this admission?: YesPlan: Physical therapy recommending acute rehabilitation however patient declines. We will arrange discharge home with home health/home physical therapy services once he is medically stable. (15) Leukocytosis Is this a current diagnosis for this admission?: YesPlan: Patient has persistent low-grade leukocytosis. He is afebrile. Follow-up chest x-ray shows improvement of airspace disease. Follow-up Urinalysis is negative. Continue current antibiotic of Levaquin for urinary tract infection. (16) Laceration of right elbow Qualifiers: Encounter type: subsequent encounter Qualified Code(s): S51.011D - Laceration without foreign body of right elbow, subsequent encounter Is this a current diagnosis for this admission?: YesPlan: Patient will need suture removal on 03/28/2016. (17) Do not resuscitate Is this a current diagnosis for this admission?: Yes - Time Time Spent with patient: 35 or more minutes Anticipated discharge: Home with Homehealth Within: within 24 hours
[2016-03-24] MEDS: TAMSULOSIN HCL 0.4 MG CAP.SR.24H PO SCH (21:32)
[2016-03-24] MEDS: HYDROCODONE/ACETAMINOPHEN 5-325 MG TABLET PO PRN (23:08)
[2016-03-25 05:17] LABS: ABSOLUTE EOSINOPHILS # (AUTO) 0.2 10^3/uL (0.0-0.6); ABSOLUTE LYMPHOCYTES (AUTO) 1.6 10^3/uL (0.5-4.7); BASOPHILS % (AUTO) 0.5 % (0-2); EOSINOPHILS % (AUTO) 2.7 % (0-6); HEMATOCRIT 38.7 % (37.9-51.0); HEMOGLOBIN 12.6 g/dL (13.5-17.0); HGB HCT DIFFERENCE -0.9; LYMPHOCYTES % (AUTO) 18.4 % (13-45); MEAN CORPUSCULAR HEMOGLOBIN 28.6 pg (27.0-33.4); MEAN CORPUSCULAR HGB CONC 32.5 g/dL (32.0-36.0); MEAN CORPUSCULAR VOLUME 88 fl (80-97); MONOCYTES % (AUTO) 11.4 % (3-13); RED CELL DISTRIBUTION WIDTH 14.3 % (11.5-14.0); WHITE BLOOD COUNT 8.9 10^3/uL (4.0-10.5)
[2016-03-25] MEDS: LANSOPRAZOLE 30 MG TAB.RAP.DR PO SCH (05:31)
[2016-03-25 05:40] LABS: ANION GAP 9 (5-19); BLOOD UREA NITROGEN 25 mg/dL (7-20); CALCIUM 8.4 mg/dL (8.4-10.2); CARBON DIOXIDE 28 mmol/L (22-30); CHLORIDE 101 mmol/L (98-107); CREATININE RESULT 1.44 mg/dL (0.52-1.25); GLUCOSE 98 mg/dL (75-110); POTASSIUM 4.1 mmol/L (3.6-5.0); SODIUM 137.9 mmol/L (137-145)
--- NOTE | 2016-03-25 09:36 | PDOC DISCHARGE SUMMARY ---
General - Admit/Disc Date/PCP Admission Date/Primary Care Provider: 03/16/16 15:54 PCP: NEFTALI TIPTON MD Discharge Date: 03/25/16 - Discharge Diagnosis (1) Acute hypoxemic respiratory failure Is this a current diagnosis for this admission?: YesSummary: Patient was found to have hypoxemia on presentation. Initially this was thought to be secondary to pulmonary edema but this was treated and follow-up chest x-ray showed clearing of pulmonary edema. Patient remained hypoxic with a room air O2 sat of 87% at rest. He is discharged home on home oxygen 2 L nasal cannula continuously. It's possible that hypoxemia may have contributed to initial syncopal event. If nothing else chronic oxygen may help with his severe pulmonary hypertension anyway. (2) Syncope Is this a current diagnosis for this admission?: YesSummary: This was likely secondary to hypoxia and symptomatic anemia. (3) Acute blood loss anemia Is this a current diagnosis for this admission?: YesSummary: Patient has been transfused 2 units PRBC on 03/17/2016. Hemoglobin has been stable posttransfusion. (4) GI hemorrhage Is this a current diagnosis for this admission?: Yes (5) Gastric ulceration Is this a current diagnosis for this admission?: YesSummary: Continue Prevacid. Noted on EGD by Dr. Ho. Follow-up with Dr. Ho as an outpatient. Helicobacter pylori negative. (6) Acute on chronic congestive heart failure Is this a current diagnosis for this admission?: YesSummary: Echocardiogram showed EF 60% grade 1/4 diastolic dysfunction. Continue Lasix. Patient not placed on REG inhibitor or ARB secondary to ejection fraction greater than 60% and chronic kidney disease. Patient was started on Toprol-XL this admission. He is clinically stable at this time from the standpoint. (7) CKD (chronic kidney disease), stage IV Is this a current diagnosis for this admission?: YesSummary: Kidney function is around baseline at time of discharge. (8) H/O heart valve replacement with bioprosthetic valve Is this a current diagnosis for this admission?: Yes (9) Hyperlipidemia Is this a current diagnosis for this admission?: Yes (10) Hypothyroidism Is this a current diagnosis for this admission?: Yes (11) Mass of urinary bladder determined by ultrasound Is this a current diagnosis for this admission?: YesSummary: Patient will need to be referred to urology as an outpatient. (12) Moderate to severe pulmonary hypertension Is this a current diagnosis for this admission?: Yes (13) UTI (urinary tract infection) Is this a current diagnosis for this admission?: YesSummary: Urine culture grew Escherichia coli and Morganella species. Patient is completing 3 more days of Levaquin based on cultures and susceptibility. (14) Ambulatory dysfunction Is this a current diagnosis for this admission?: YesSummary: Patient has been undergoing physical therapy in the hospital. They have recommended [facility] for rehabilitation prior to returning home alone. Patient declines this option on multiple occasions. He will be discharged home with home physical therapy services. He is advised to use rolling walker. At time of discharge she was ambulating 80 feet with rolling walker and minimal assistance. (15) Laceration of right elbow Is this a current diagnosis for this admission?: YesSummary: Patient will need sutures were removed in 3-5 days. (16) Vitamin B 12 deficiency Is this a current diagnosis for this admission?: YesSummary: Patient was given B-12 injections done hospitalization. He will be started on vitamin B 12 1000 g by mouth daily. (17) Do not resuscitate Is this a current diagnosis for this admission?: Yes - Additional Information Resuscitation Status: Full Code Discharge Diet: Cardiac Discharge Activity: Slowly Increase Activity Home Medications: Ezetimibe/Simvastatin [Vytorin 10-20 mg Tablet] 1 tab PO DAILY 03/16/16 Hydrochlorothiazide 1 tab PO DAILY 03/16/16 Tamsulosin HCl 1 cap PO QHS 03/16/16 Acetaminophen [Tylenol 325 mg Tablet] 650 mg PO Q4HP PRN tablet 03/25/16 Cyanocobalamin (Vitamin B-12) [Vitamin B-12] 1,000 mcg SL DAILY #30 tab.subl Docusate Sodium [Colace 100 mg Capsule] 100 mg PO BID #60 capsule 03/25/16 Furosemide [Lasix 20 mg Tablet] 20 mg PO DAILY #30 tablet 03/25/16 Hydrocodone/Acetaminophen [[place] 5-325 mg Tablet] 1 tab PO Q6HP PRN #10 tablet 03/25/16 Lansoprazole [Prevacid 30 mg Odt Tablet] 30 mg PO BID@0600,1700 #60 tab. 03/25/16 Levofloxacin [Levaquin 500 mg Tablet] 500 mg PO DAILY #3 tablet 03/25/16 Levothyroxine Sodium [Synthroid 0.025 mg Tablet] 0.025 mg PO DAILY #30 tablet Metoprolol Succinate [Toprol Xl 25 mg Tab.sr] 25 mg PO DAILY #30 tab.sr.24h Potassium Chloride [Klor-Con 10 Meq Tablet.sa] 20 meq PO DAILY #30 tablet.sa History of Present Illness Patient complains of: Syncope History of Present Illness: KEMAL JACKSON JR is a 89 year old male who presents to the emergency department after syncopal episode. Patient reports that he was trying to get to the bathroom as he began vomiting this morning and subsequently syncopized. Patient had a complete loss of consciousness and facial trauma. Patient without the floor and was too weak to stand and called 911. Per ED reports, EMS noted blood all over the bathroom and possibly coffee-ground emesis. Patient does report that starting this morning he began having black vomit. He reports normally that he is constipated and he did take a Dulcolax this morning and has subsequently had a stool that was looser in emergency department. Patient reports that he is on Plavix as he has a history of a heart valve replacement. He also reports that he's been taking Aleve nightly for the last several weeks due to insomnia. He does complain of some lower back pain and also some left lower extremity "problems with his toe". Patient is referred to the hospitalist service for sepsis secondary to urinary tract infection, syncope , upper GI bleed. Hospital Course Hospital Course: See above Physical Exam Vital Signs: Temp Pulse Resp BP Pulse Ox 99.0 F 77 20 124/48 L 93 03/25/16 07:30 03/25/16 07:30 03/25/16 07:30 03/25/16 07:30 03/25/16 07:55 Intake & Output 03/24/16 03/25/16 03/26/16 06:59 06:59 06:59 Intake Total 615 2408 Output Total 1100 1375 Balance -485 1033 Weight 65.9 kg 65.7 kg GENERAL: No acute distress, frail, elderly HEENT: Conjunctiva clear, nonicteric, moist mucous membranes, no JVD, midline trachea RESPIRATORY: Clear to auscultation bilaterally, no wheezes, no rhonchi CARDIAC: Regular rate and rhythm, no murmurs/gallops/rubs ABDOMEN: Soft, nondistended, nontender, positive bowel sounds, no rebound, no guarding EXTREMETIES: No edema, no calf tenderness NEUROLOGIC: Alert, oriented to person/place/time, CN's grossly intact, no focal deficits SKIN: Sutures intact over right elbow with no signs of infection PSYCH: Normal mood, normal affect Results Laboratory Results: 03/25/16 05:03 03/25/16 05:03 03/25/16 03/25/16 05:03 05:03 WBC 8.9 RBC 4.40 Hgb 12.6 L Hct 38.7 MCV 88 MCH 28.6 MCHC 32.5 RDW 14.3 H Plt Count 237 Seg Neutrophils % 67.0 Lymphocytes % 18.4 Monocytes % 11.4 Eosinophils % 2.7 Basophils % 0.5 Absolute Neutrophils 6.0 Absolute Lymphocytes 1.6 Absolute Monocytes 1.0 Absolute Eosinophils 0.2 Absolute Basophils 0.0 Sodium 137.9 Potassium 4.1 Chloride 101 Carbon Dioxide 28 Anion Gap 9 BUN 25 H Creatinine 1.44 H Est GFR ( Amer) 56 L Est GFR (Non-Af Amer) 46 L Glucose 98 Calcium 8.4 03/16/16 03/16/16 03/17/16 16:55 20:04 02:23 Troponin I 0.021 0.026 0.028 Impressions: Limited or Localized CT 03/16/16 00:00 IMPRESSION: Infrarenal abdominal aortic aneurysm as noted above measuring 4.1 x 5.3 cm in diameters. Small gallstones. Other findings as noted above Renal Ultrasound 03/16/16 00:00 IMPRESSION: There is hyperechoic irregular thickening of the right bladder wall which shows internal color Doppler flow, this area measures 2.9 x 2.3 x 0.8 cm, concerning for infiltrating lesion. No hydronephrosis. Cervical Spine CT 03/16/16 11:34 IMPRESSION: CHRONIC DEGENERATIVE CHANGES. NO ACUTE FINDINGS. Head CT 03/16/16 11:34 IMPRESSION: 1. No acute intracranial abnormality. No skull fracture. 2. Age-related brain matter volume involution with compensatory ventriculomegaly and CSF space dilatation. Chronic microvascular a disease changes in the supratentorial white matter. Facial Bones CT 03/16/16 11:42 IMPRESSION: No acute facial bone fractures. Abdomen/Pelvis CT 03/19/16 00:00 IMPRESSION: Moderately large bilateral pleural effusions with basilar atelectasis/ air bronchograms. Significantly increased since 03/16/2016. Stable saccular aneurysm. Gallstones. Stable probably old compression fracture of L3. Chest X-Ray 03/23/16 12:09 IMPRESSION: Interval improvement in the previously described diffuse interstitial pattern as noted above. No acute consolidations or pleural effusions are identified. Other findings as noted above Qualifiers PATEINT BEING DISCHARGED WITH ANY OF THE FOLLOWING DIAGNOSIS?: No Plan Discharge Plan: Oxygen supplementation 2 L nasal cannula continuous. Patient will need a follow -up primary care provider for reevaluation and suture removal within 3-5 days. Home health services for [facility], home health aide, physical therapy. Time Spent: Less than 30 Minutes
[2016-03-25] MEDS ORDERED: FUROSEMIDE 20 MG TABLET PO SCH (10:00)
[2016-03-25] MEDS: LEVOFLOXACIN 500 MG TABLET PO SCH (10:23)
[2016-03-25] MEDS: DOCUSATE SODIUM 100 MG CAPSULE PO SCH (10:23)
[2016-03-25] MEDS: LEVOTHYROXINE SODIUM 0.025 MG TABLET PO SCH (10:23)
[2016-03-25] MEDS: METOPROLOL SUCCINATE 25 MG TAB.SR.24H PO SCH (10:23)
[2016-03-25 12:55] VITALS: BP 113/42
== END 2016-03-25 15:12 | disposition home health service (06) | DRG 871 ==
LOC: ER 11:17 → UNDOADMIN 15:41 → EH 15:41 → 3W 19:00
PROVIDERS: ADMIT Family Medicine; ATTEND Family Medicine
PROC: 0HQEXZZ Repair Left Lower Arm Skin, External Approach (ICD-10-PCS; 2016-03-16)
PROC: 30233N1 Transfusion of Nonautologous Red Blood Cells into Peripheral Vein, Percutaneous Approach (ICD-10-PCS; 2016-03-17)
PROC: 0DB68ZX Excision of Stomach, Via Natural or Artificial Opening Endoscopic, Diagnostic (ICD-10-PCS; principal; 2016-03-17 13:30)
DX: A41.9 Sepsis, unspecified organism (principal); I50.33 Acute on chronic diastolic (congestive) heart failure; K25.0 Acute gastric ulcer with hemorrhage; J96.01 Acute respiratory failure with hypoxia; N18.4 Chronic kidney disease, stage 4 (severe); N30.00 Acute cystitis without hematuria; N17.9 Acute kidney failure, unspecified; D62 Acute posthemorrhagic anemia; I13.0 Hypertensive heart and chronic kidney disease with heart failure and stage 1 through stage 4 chronic kidney disease, or unspecified chronic kidney disease; K31.1 Adult hypertrophic pyloric stenosis; I27.2 Other secondary pulmonary hypertension; E78.5 Hyperlipidemia, unspecified; I25.10 Atherosclerotic heart disease of native coronary artery without angina pectoris; J44.9 Chronic obstructive pulmonary disease, unspecified; I71.4 Abdominal aortic aneurysm, without rupture; G47.00 Insomnia, unspecified; K44.9 Diaphragmatic hernia without obstruction or gangrene; N47.1 Phimosis; N40.1 Benign prostatic hyperplasia with lower urinary tract symptoms; E53.8 Deficiency of other specified B group vitamins; B96.20 Unspecified Escherichia coli [E. coli] as the cause of diseases classified elsewhere; B96.4 Proteus (mirabilis) (morganii) as the cause of diseases classified elsewhere; I73.9 Peripheral vascular disease, unspecified; N32.9 Bladder disorder, unspecified; E03.9 Hypothyroidism, unspecified; S00.31XA Abrasion of nose, initial encounter; S80.01XA Contusion of right knee, initial encounter; S51.812A Laceration without foreign body of left forearm, initial encounter; W18.30XA Fall on same level, unspecified, initial encounter; Y92.002 Bathroom of unspecified non-institutional (private) residence as the place of occurrence of the external cause; F10.21 Alcohol dependence, in remission; Z66 Do not resuscitate; Z87.891 Personal history of nicotine dependence; Z79.02 Long term (current) use of antithrombotics/antiplatelets; Z95.2 Presence of prosthetic heart valve; Z82.49 Family history of ischemic heart disease and other diseases of the circulatory system; Z91.81 History of falling; Z99.81 Dependence on supplemental oxygen
CPT/HCPCS: 36415; 36430; 43239; 43249; 70450; 70486; 71010; 71020; 72125; 74176; 76380; 76770; 80048; 80053; 81001; 82272; 82550; 82553; 82607; 82728; 82746; 82962; 83036; 83540; 83550; 83605; 83690; 83735; 84439; 84443; 84466; 84481; 84484; 85025; 85027; 85045; 85610; 85730; 86850; 86900; 86901; 86920; 87040; 87086; 87088; 87186; 88305; 88342; 93005; 93010; 93306; 93926; 96374; 99285; C1726; G8978-GP; G8979-GP; G8987-GO; G8988-GO; J0171; J1200; J1610; J1940; J2250; J2270; J2310; J2405; J2543; J2550; J3010; J3420; J3475; J3490; J7030; J7620; P9016; S0164

== ENCOUNTER 2016-08-30 11:05 | Emergency (ER) | payer MEDICARE, BC, OTHER ==
[2016-08-30] MEDS ORDERED: PANTOPRAZOLE SODIUM 40 MG VIAL IV PRN (11:14)
[2016-08-30] MEDS ORDERED: PANTOPRAZOLE SODIUM 40 MG VIAL IV ONE (11:14)
[2016-08-30 11:44] LABS: PROTHROMBIN TIME 16.3 SEC (11.4-15.4); VENOUS BLOOD BASE EXCESS -3.9 mmol/L; VENOUS BLOOD HCO3 22.1 mmol/L (20-32); VENOUS BLOOD PH 7.32 (7.30-7.42)
[2016-08-30 11:57] LABS: ABSOLUTE BASOPHILS # (AUTO) 0.1 10^3/uL (0.0-0.2); ABSOLUTE LYMPHOCYTES (AUTO) 1.9 10^3/uL (0.5-4.7); ABSOLUTE MONOCYTES (AUTO) 0.8 10^3/uL (0.1-1.4); ABSOLUTE NEUT (AUTO) 16.4 10^3/uL (1.7-8.2); BASOPHILS % (AUTO) 0.4 % (0-2); EOSINOPHILS % (AUTO) 0.1 % (0-6); HEMATOCRIT 38.3 % (37.9-51.0); HEMOGLOBIN 11.9 g/dL (13.5-17.0); HGB HCT DIFFERENCE -2.6; LYMPHOCYTES % (AUTO) 9.8 % (13-45); MEAN CORPUSCULAR HEMOGLOBIN 26.7 pg (27.0-33.4); MEAN CORPUSCULAR HGB CONC 31.1 g/dL (32.0-36.0); MEAN CORPUSCULAR VOLUME 86 fl (80-97); MONOCYTES % (AUTO) 4.4 % (3-13); RED BLOOD COUNT 4.46 10^6/uL (4.35-5.55); RED CELL DISTRIBUTION WIDTH 15.1 % (11.5-14.0); SEGMENTED NEUTROPHILS % (AUTO) 85.3 % (42-78); WHITE BLOOD COUNT 19.2 10^3/uL (4.0-10.5)
[2016-08-30 11:59] LABS: ALANINE AMINOTRANSFERASE 21 U/L (21-72); ALBUMIN 3.3 g/dL (3.5-5.0); ALKALINE PHOSPHATASE 43 U/L (38-126); ANION GAP 16 (5-19); ASPARTATE AMINO TRANSFERASE 16 U/L (17-59); BILIRUBIN,DIRECT 0.4 mg/dL (0.0-0.4); BILIRUBIN,TOTAL 0.7 mg/dL (0.2-1.3); BLOOD UREA NITROGEN 55 mg/dL (7-20); CALCIUM 9.3 mg/dL (8.4-10.2); CARBON DIOXIDE 22 mmol/L (22-30); CHLORIDE 104 mmol/L (98-107); CREATININE RESULT 1.42 mg/dL (0.52-1.25); GLUCOSE 80 mg/dL (75-110); POTASSIUM 5.1 mmol/L (3.6-5.0); SODIUM 141.7 mmol/L (137-145); TOTAL PROTEIN 6.3 g/dL (6.3-8.2)
--- NOTE | 2016-08-30 12:05 | RADIOLOGY REPORT (SQ) ---
EXAM DESCRIPTION: CHEST SINGLE VIEW COMPLETED DATE/TIME: 08/30/2016 11:42 am REASON FOR STUDY: sob COMPARISON: 03/23/2016. NUMBER OF VIEWS: One view. TECHNIQUE: Single frontal radiographic view of the chest acquired. LIMITATIONS: None. FINDINGS: LUNGS AND PLEURA: Bibasilar and peripheral subpleural interstitial markings. Similar to p rior, probable mild interstitial edema. No overt pneumonia. MEDIASTINUM AND HILAR STRUCTURES: Stable postoperative contours. HEART AND VASCULAR STRUCTURES: Stable heart size. BONES: No acute findings. HARDWARE: None in the chest. OTHER: No other significant finding. IMPRESSION: Recurrent interstitial changes, likely mild interstitial edema. There may be some chron ic disease as well. TECHNICAL DOCUMENTATION: JOB ID: [id number] [employer]- All Rights Reserved
[2016-08-30] MEDS ORDERED: NORMAL SALINE 1000 ML 1,000 ML IV ONE ×2 (12:17→13:44)
[2016-08-30] MEDS ORDERED: ERTAPENEM SODIUM INJ 1 GM VIAL IV ONE (12:17)
[2016-08-30] MEDS ORDERED: DEXTROSE 5%-NORMAL SALINE 1,000 ML IV ONE (13:45)
--- NOTE | 2016-08-30 14:16 | RADIOLOGY REPORT (SQ) ---
EXAM DESCRIPTION: CT ABD/PELVIS WITH IV ONLY COMPLETED DATE/TIME: 08/30/2016 1:56 pm REASON FOR STUDY: gi bleed elevated lactic COMPARISON: 03/19/2016. TECHNIQUE: CT scan of the abdomen and pelvis performed using helical scanning technique with dynamic intravenous contrast injection. No oral contrast. Images reviewed with lung, soft tissue, and bone windows. Reconstructed coronal and sagittal MPR images reviewed. Delayed images for evaluation of the urinary system also acquired. All images stored on PACS. All CT scanners at this facility use dose modulation, iterative reconstruction, and/or weight based d osing when appropriate to reduce radiation dose to as low as reasonably achievable (ALARA). [facility]: Dose Right [facility]: CareDose [facility]: Dose Right [facility]: Teradose 4D [facility]: Porch CONTRAST TYPE AND DOSE: contrast/concentration: Isovue 370.00 mg/ml; Total Contrast Delivered: 78.0 ml; Total Saline Delivered: 67.1 ml RENAL FUNCTION: Creatinine 1.4 RADIATION DOSE: 19.56. LIMITATIONS: None. FINDINGS: LOWER CHEST: Extensive chronic basilar scarring and interstitial change. LIVER: Normal size. No masses. No dilated ducts. SPLEEN: Normal size. No focal lesions. PANCREAS: No masses. No significant calcifications. No adjacent inflammation or peripancreatic fluid collections. Pancreatic duct not dilated. GALLBLADDER: Cholelithiasis. Otherwise normal. ADRENAL GLANDS: No significant masses or asymmetry. RIGHT KIDNEY AND URETER: No solid masses. No significant calcification. No hydronephrosis or hydroure ter. LEFT KIDNEY AND URETER: No solid masses. No significant calcification. No hydronephrosis or hydrouret er. AORTA AND VESSELS: Infrarenal aneurysm measuring 5.1 cm in maximal dimension, grossly stable. Heavil y calcified branch vessels without overt arterial occlusion or venous clot detected. RETROPERITONEUM: No retroperitoneal adenopathy, hemorrhage or masses. BOWEL AND PERITONEAL CAVITY: Moderate stool in the distal half of the colon. Diverticulosis througho ut but no active diverticulitis evident. Mild fluid-filled loops of mid to lower left abdominal smal l bowel, likely ileus. A clear point of obstruction is not evident, although distal loops look decom pressed. APPENDIX: Normal. PELVIS: Right lateral slightly dense appearing bladder mass measures up to 2.9 cm maximal transverse dimension. No pelvic adenopathy or free fluid identified. Mild prostate enlargement. ABDOMINAL WALL: No masses. No hernias. BONES: L3 compression fracture, chronic. No lytic or blastic bone lesions. OTHER: No other significant finding. IMPRESSION: 1. Cholelithiasis. 2. Probable mild ileus. Constipation and diverticulosis without e vidence of active diverticulitis. 3. Infrarenal abdominal aortic aneurysm measures close to 5.1 cm, grossly stable. 4. Bladder mass, suspicious for neoplasm. No overt suggestion of metastatic diseas e. TECHNICAL DOCUMENTATION: JOB ID: [id number] Quality ID # [id number]: Final reports with documentation of one or more dose reduction techniques (e.g., Au tomated exposure control, adjustment of the mA and/or kV according to patient size, use of iterative reconstruction technique) 2010 [email or web address]- All Rights Reserved
--- NOTE | 2016-08-30 14:45 | ER Document Report ---
ED General - General Chief Complaint: Vomiting Stated Complaint: DIFFICULTY BREATHING Time Seen by Provider: 08/30/16 11:13 TRAVEL OUTSIDE OF THE [place] IN LAST 30 DAYS: No - HPI Patient complains to provider of: Coffee-ground emesis Notes: Coming in for vomiting 2 coffee-ground emesis. Patient had a history of recent upper GI bleed beginning the year patient states compliance medication patient does have coronary artery history also patient has a history of an abdominal aortic aneurysm patient denies any pain patient does have COPD as well as on chronic home O2, evaluation patient is alert and oriented no obvious distress with vomitus around his mouth of the coffee-ground. Patient denies any bloody stools difficulty urinating denies any abdominal pain. On this evaluation no sinus tachycardia no pedal skin no signs of hypovolemic shock patient denies fevers chills diarrhea. - Related Data Allergies/Adverse Reactions: No Known Allergies Allergy (Unverified 03/16/16 12:12) Past Medical History - Social History Smoking Status: Former Smoker Chew tobacco use (# tins/day): No Frequency of alcohol use: None Drug Abuse: None Family History: CAD - Past Medical History Cardiac Medical History: Reports: Hx Coronary Artery Disease, Hx Heart Attack - more than 10 years ago, Hx Hypercholesterolemia Neurological Medical History: Denies: Hx Seizures Psychiatric Medical History: Denies: Hx Depression Past Surgical History: Reports: Hx Cardiac Surgery - Cardiac bypass surgery patient doesn't know how many, Hx Valve Replacement - Immunizations Hx Diphtheria, Pertussis, Tetanus Vaccination: Yes Review of Systems - Review of Systems Constitutional: No symptoms reported EENT: No symptoms reported Cardiovascular: No symptoms reported Respiratory: No symptoms reported Gastrointestinal: Other - Coffee-ground emesis Genitourinary: No symptoms reported Male Genitourinary: No symptoms reported Musculoskeletal: No symptoms reported Skin: No symptoms reported Hematologic/Lymphatic: No symptoms reported Neurological/Psychological: No symptoms reported Physical Exam - Vital signs Vitals: Resp 28 H 08/30/16 11:13 Interpretation: Normal - General General appearance: Appears well, Alert - HEENT Head: Normocephalic, Atraumatic Eyes: Normal Pupils: PERRL - Respiratory Respiratory status: No respiratory distress Chest status: Nontender Breath sounds: Normal Chest palpation: Normal - Cardiovascular Rhythm: Regular Heart sounds: Normal auscultation Murmur: No - Abdominal Inspection: Normal Distension: No distension Bowel sounds: Normal Tenderness: Nontender Organomegaly: No organomegaly - Back Back: Normal, Nontender - Extremities General upper extremity: Normal inspection, Nontender, Normal color, Normal ROM , Normal temperature General lower extremity: Normal inspection, Nontender, Normal color, Normal ROM , Normal temperature, Normal weight bearing. No: Walter's sign - Neurological Neuro grossly intact: Yes Cognition: Normal Orientation: AAOx4 Sheryl Coma Scale Eye Opening: Spontaneous Amo Coma Scale Verbal: Oriented Amo Coma Scale Motor: Obeys Commands Amo Coma Scale Total: 15 Speech: Normal Motor strength normal: LUE, RUE, LLE, RLE Sensory: Normal - Psychological Associated symptoms: Normal affect, Normal mood - Skin Skin Temperature: Warm Skin Moisture: Dry Skin Color: Normal Course - Re-evaluation Re-evalutation: 08/30/16 14:43 Patient with elevated lactic acid leukocytosis. Chest x-ray does not show any signs of infection and will perform a CT scan which showed diverticulosis no signs of acute infection no changes to patient's A. 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 These results were relayed to the patient. Patient did have a transient time of hypotension that will resolve 1 L fluid bolus. Patient was started on Protonix given a dose of Invanz due to possible signs of sepsis currently waiting on urinalysis. Otherwise patient is afebrile with stable vital signs stable on his home O2. Discussed with Dr. Baldemra Heath patient was attempted in transfer. - Vital Signs Vital signs: Temp Pulse Resp BP Pulse Ox 97.4 F 19 109/54 L 95 08/30/16 11:32 08/30/16 14:11 08/30/16 14:11 08/30/16 14:11 - Laboratory Result Diagrams: 08/30/16 11:25 08/30/16 11:25 Laboratory results interpreted by me: 08/30/16 08/30/16 08/30/16 11:25 11:25 11:25 WBC 19.2 H Hgb 11.9 L MCH 26.7 L MCHC 31.1 L RDW 15.1 H Seg Neutrophils % 85.3 H Lymphocytes % 9.8 L Absolute Neutrophils 16.4 H PT 16.3 H Potassium 5.1 H BUN 55 H Creatinine 1.42 H Est GFR ( Amer) 57 L Est GFR (Non-Af Amer) 47 L Lactic Acid AST 16 L Albumin 3.3 L 08/30/16 11:25 WBC Hgb MCH MCHC RDW Seg Neutrophils % Lymphocytes % Absolute Neutrophils PT Potassium BUN Creatinine Est GFR ( Amer) Est GFR (Non-Af Amer) Lactic Acid 5.0 H AST Albumin Critical Care Note - Critical Care Note Total time excluding time spent on procedures (mins): 35 Comments: Evaluation patient with GI bleeding. Discharge - Discharge Clinical Impression: GI hemorrhage, History of peptic ulcer disease, GI hemorrhage, Coffee ground emesis, Bladder mass Condition: Stable Disposition: [facility]
[2016-08-30 14:53] LABS: APPEARANCE,URINE CLEAR; BILIRUBIN,URINE NEGATIVE (NEGATIVE); GLUCOSE, URINE NEGATIVE (NEGATIVE); KETONES,URINE NEGATIVE (NEGATIVE); LEUKOCYTE ESTERASE,URINE MODERATE (NEGATIVE); NITRITE,URINE NEGATIVE (NEGATIVE); PROTEIN,URINE NEGATIVE (NEGATIVE); UROBILINOGEN,URINE NEGATIVE mg/dL (<2.0)
[2016-08-30 15:58] VITALS: BP 101/47
--- NOTE | 2016-08-30 16:12 | ER Document Report ---
Doctor's Note Notes: 08/30/16 16:1 Re-assessment prior to transport: Patient is alert and appears comfortable. Denies complaints. Vital signs are stable. He is stable for transport.
--- NOTE | 2016-08-30 19:57 | EKG REPORT ---
SEVERITY:- NORMAL ECG - SINUS RHYTHM EARLY TRANSITION CONSIDER OLD TRUE POST WALL NC. : Confirmed by: Jose De Jesus Negron MD 30-Aug-2016 19:56:55
== END 2016-08-30 16:20 | disposition short-term general hospital (02) ==
LOC: ER 11:05
DX: K57.91 Diverticulosis of intestine, part unspecified, without perforation or abscess with bleeding (principal); N32.9 Bladder disorder, unspecified; R74.0 Nonspecific elevation of levels of transaminase and lactic acid dehydrogenase [LDH]; D72.829 Elevated white blood cell count, unspecified; I95.9 Hypotension, unspecified; I71.4 Abdominal aortic aneurysm, without rupture; R11.10 Vomiting, unspecified; I25.10 Atherosclerotic heart disease of native coronary artery without angina pectoris; I25.2 Old myocardial infarction; J44.9 Chronic obstructive pulmonary disease, unspecified; Z99.81 Dependence on supplemental oxygen; Z87.891 Personal history of nicotine dependence; Z82.49 Family history of ischemic heart disease and other diseases of the circulatory system; Z95.1 Presence of aortocoronary bypass graft; Z95.2 Presence of prosthetic heart valve; Z87.11 Personal history of peptic ulcer disease
CPT/HCPCS: 93005; 99291; 96375; 96365; 96366; 96367; 86900; 86901; 36415; 87040; 87086; 86850; 83690; 85025; 85610; 82271; 82272; 80053; 81001; 82803; 83605; 71010; 74177; 93010; J1335; C9113; J7030; S0164